=== PATIENT | female | born 1985 | race Caucasian/White ===

== ENCOUNTER 2016-06-14 07:54 | Emergency (ER) | payer MEDICAID ==
[2016-06-14 08:44] LABS: ABSOLUTE EOSINOPHILS # (AUTO) 0.1 10^3/uL (0.0-0.6); ABSOLUTE LYMPHOCYTES (AUTO) 1.3 10^3/uL (0.5-4.7); ABSOLUTE MONOCYTES (AUTO) 0.3 10^3/uL (0.1-1.4); ABSOLUTE NEUT (AUTO) 7.8 10^3/uL (1.7-8.2); BASOPHILS % (AUTO) 0.4 % (0-2); EOSINOPHILS % (AUTO) 0.9 % (0-6); HEMATOCRIT 27.2 % (36.0-47.0); HEMOGLOBIN 9.5 g/dL (12.0-15.5); HGB HCT DIFFERENCE 1.3; LYMPHOCYTES % (AUTO) 14.1 % (13-45); MEAN CORPUSCULAR HEMOGLOBIN 28.6 pg (27.0-33.4); MEAN CORPUSCULAR HGB CONC 34.7 g/dL (32.0-36.0); MEAN CORPUSCULAR VOLUME 82 fl (80-97); MONOCYTES % (AUTO) 3.2 % (3-13); RED BLOOD COUNT 3.31 10^6/uL (3.72-5.28); SEGMENTED NEUTROPHILS % (AUTO) 81.4 % (42-78); WHITE BLOOD COUNT 9.6 10^3/uL (4.0-10.5)
[2016-06-14 08:56] LABS: ALANINE AMINOTRANSFERASE 38 U/L (9-52); ALBUMIN 2.2 g/dL (3.5-5.0); ALKALINE PHOSPHATASE 62 U/L (38-126); ANION GAP 10 (5-19); ASPARTATE AMINO TRANSFERASE 16 U/L (14-36); BILIRUBIN,TOTAL 0.3 mg/dL (0.2-1.3); BLOOD UREA NITROGEN 79 mg/dL (7-20); CALCIUM 7.5 mg/dL (8.4-10.2); CARBON DIOXIDE 24 mmol/L (22-30); CHLORIDE 108 mmol/L (98-107); CREATININE RESULT 6.87 mg/dL (0.52-1.25); GLUCOSE 197 mg/dL (75-110); SODIUM 142.2 mmol/L (137-145); TOTAL PROTEIN 3.9 g/dL (6.3-8.2)
[2016-06-14] MEDS ORDERED: ONDANSETRON HCL INJ/PF 4 MG/2 ML SDV IV ONE (09:08)
[2016-06-14] MEDS ORDERED: FUROSEMIDE INJ/PF 20 MG/2 ML SDV IV ONE (09:09)
--- NOTE | 2016-06-14 09:13 | ER Document Report ---
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 She also states that she has worsening dyspnea. Of note she is in the process of getting started on peritoneal dialysis and completed the class II days ago. She is supposed to follow-up at some point this week with surgery. Her stopping builder is at [facility] in [place]. She denies any fevers or chills. She has had mild cough and congestion. No dysuria. TRAVEL OUTSIDE OF THE [place] IN LAST 30 DAYS: No - Related Data Allergies/Adverse Reactions: No Known Allergies Allergy (Verified 06/14/16 07:59) Past Medical History - General Information source: Patient - Social History Smoking Status: Never Smoker Chew tobacco use (# tins/day): No Frequency of alcohol use: None Drug Abuse: None Family History: Reviewed & Not Pertinent Patient has suicidal ideation: No Patient has homicidal ideation: No - Past Medical History Cardiac Medical History: Reports: Hx Hypertension Renal/ Medical History: Reports: Hx End Stage Renal Disease. Denies: Hx Peritoneal Dialysis GI Medical History: Reports: Hx Gastroesophageal Reflux Disease Past Surgical History: Reports: Hx Section Review of Systems - Review of Systems Notes: REVIEW OF SYSTEMS: CONSTITUTIONAL : Denies fever, chills, or sweats. EENT: Denies eye, ear, throat, or mouth pain or symptoms. Denies nasal or sinus congestion. CARDIOVASCULAR: As per history of present illness RESPIRATORY: As per history of present illness GASTROINTESTINAL: Denies abdominal pain. Vomiting 4 today as per history of present illness. No diarrhea. GENITOURINARY: Denies difficulty urinating, painful urination, burning, frequency, or blood in urine. FEMALE GENITOURINARY: Last menstrual period June 07 MUSCULOSKELETAL: Denies neck or back pain or joint pain or swelling. SKIN: Denies rash or skin lesions. HEMATOLOGIC : Denies easy bruising or bleeding. LYMPHATIC: Denies swollen, enlarged glands. NEUROLOGICAL: Denies altered mental status or loss of consciousness. Denies headache. PSYCHIATRIC: Denies anxiety or stress or depression. ALL OTHER SYSTEMS REVIEWED AND NEGATIVE. Physical Exam - Vital signs Vitals: Temp Pulse Resp BP Pulse Ox 98.2 F 99 19 157/88 H 96 06/14/16 08:01 06/14/16 08:01 06/14/16 08:01 06/14/16 08:01 06/14/16 08:01 Course - Re-evaluation Re-evalutation: 06/14/16 11:31 Patient has felt better in the emergency department since administration of Zofran. She has had no vomiting since then. She is noted to be smiling and pleasant and conversant and happy talking in the room with her family. Case was discussed with nephrology at [facility] who is familiar with the patient. We discussed her lab results today including the fact that her creatinine is 6.87. Reportedly this is an improvement from 2 weeks ago when her creatinine was above 8. At this time patient is feeling better and hemodynamically stable and so agrees with outpatient's symptomatic care and follow-up as scheduled. Return precautions discussed patient and family, told plan. - Vital Signs Vital signs: Temp Pulse Resp BP Pulse Ox 98.2 F 99 19 139/90 H 100 06/14/16 08:01 06/14/16 08:01 06/14/16 11:01 06/14/16 11:00 06/14/16 11:01 - Laboratory Result Diagrams: 06/14/16 08:25 06/14/16 08:25 Laboratory results interpreted by me: 06/14/16 06/14/16 08:25 08:25 RBC 3.31 L Hgb 9.5 L Hct 27.2 L Seg Neutrophils % 81.4 H Chloride 108 H BUN 79 H Creatinine 6.87 H Est GFR ( Amer) 9 L Est GFR (Non-Af Amer) 7 L Glucose 197 H Calcium 7.5 L Total Protein 3.9 L Albumin 2.2 L Discharge - Discharge Clinical Impression: ESRD (end stage renal disease) Vomiting Qualifiers: Vomiting type: unspecified Vomiting Intractability: non-intractable Nausea presence: with nausea Qualified Code(s): R11.2 - Nausea with vomiting, unspecified Condition: Stable Disposition: HOME, SELF-CARE Additional Instructions: You have end stage renal disease, but your creatinine today is actually improved to 6.87. Take zofran as needed for nausea/vomiting. Follow up with nephrology and surgery as scheduled and planned to continue with plan to initiate peritoneal dialysis. Please return to the ER for fever, worsening shortness of breath, persistent vomiting despite zofran, or any worsening symptoms or concerns. Prescriptions: Ondansetron [Zofran Odt 4 mg Tablet] 1 tab PO Q6H PRN #10 tab.rapdis PRN Reason: For Nausea/Vomiting Referrals: EMMIE GIPSON PA-C [Primary Care Provider] - Follow up in 3-5 days
[2016-06-14 11:47] VITALS: BP 139/90
--- NOTE | 2016-06-16 08:15 | EKG REPORT ---
SEVERITY:- NORMAL ECG - SINUS RHYTHM : Confirmed by: Torrey Graham MD 16-Jun-2016 08:15:00
== END 2016-06-14 11:48 | disposition home or self-care (01) ==
LOC: ER 07:54
DX: N18.6 End stage renal disease (principal); R11.2 Nausea with vomiting, unspecified; N26.9 Renal sclerosis, unspecified; R03.0 Elevated blood-pressure reading, without diagnosis of hypertension
CPT/HCPCS: 93005; 99284; 96374; 96375; 36415; 85025; 80053; 71020; 93010; J1940; J2405

== ENCOUNTER → 2016-06-24 | Outpatient (CLI) | payer MEDICAID ==
[2016-06-24 09:15] LABS: HEMATOCRIT 27.1 % (36.0-47.0); HEMOGLOBIN 9.5 g/dL (12.0-15.5); HGB HCT DIFFERENCE 1.4; MEAN CORPUSCULAR HEMOGLOBIN 28.8 pg (27.0-33.4); MEAN CORPUSCULAR HGB CONC 34.9 g/dL (32.0-36.0); MEAN CORPUSCULAR VOLUME 83 fl (80-97); RED BLOOD COUNT 3.28 10^6/uL (3.72-5.28); RED CELL DISTRIBUTION WIDTH 15.4 % (11.5-14.0); WHITE BLOOD COUNT 10.2 10^3/uL (4.0-10.5)
[2016-06-24 09:17] LABS: APPEARANCE,URINE CLEAR; BILIRUBIN,URINE NEGATIVE (NEGATIVE); GLUCOSE, URINE 150 mg/dL (NEGATIVE); KETONES,URINE NEGATIVE (NEGATIVE); LEUKOCYTE ESTERASE,URINE NEGATIVE (NEGATIVE); NITRITE,URINE NEGATIVE (NEGATIVE); PROTEIN,URINE >=500 mg/dL (NEGATIVE); UROBILINOGEN,URINE NEGATIVE mg/dL (<2.0)
[2016-06-24 09:43] LABS: ANION GAP 7 (5-19); BLOOD UREA NITROGEN 84 mg/dL (7-20); CALCIUM 7.9 mg/dL (8.4-10.2); CARBON DIOXIDE 26 mmol/L (22-30); CHLORIDE 106 mmol/L (98-107); CREATININE RESULT 6.98 mg/dL (0.52-1.25); GLUCOSE 84 mg/dL (75-110); POTASSIUM 4.8 mmol/L (3.6-5.0); SODIUM 138.6 mmol/L (137-145)
== END ==
LOC: OD 07:13
PROVIDERS: ATTEND Internal Medicine Nephrology
DX: I12.0 Hypertensive chronic kidney disease with stage 5 chronic kidney disease or end stage renal disease (principal); N18.5 Chronic kidney disease, stage 5; D64.9 Anemia, unspecified
CPT/HCPCS: 36415; 80048; 81001; 85027

== ENCOUNTER → 2016-06-26 | Outpatient (CLI) | payer MEDICAID | LOC: OD 10:16 | PROVIDERS: ATTEND Internal Medicine Nephrology | DX: R06.09 Other forms of dyspnea (principal) | CPT/HCPCS: 71020 ==

== ENCOUNTER → 2016-07-02 | Outpatient (CLI) | payer MEDICAID ==
[2016-07-02 09:34] LABS: APPEARANCE,URINE CLEAR; BILIRUBIN,URINE NEGATIVE (NEGATIVE); GLUCOSE, URINE 50 mg/dL (NEGATIVE); KETONES,URINE NEGATIVE (NEGATIVE); LEUKOCYTE ESTERASE,URINE NEGATIVE (NEGATIVE); NITRITE,URINE NEGATIVE (NEGATIVE); PROTEIN,URINE >=500 mg/dL (NEGATIVE); URINE SPECIFIC GRAVITY 1.008; UROBILINOGEN,URINE NEGATIVE mg/dL (<2.0)
[2016-07-02 09:40] LABS: ABSOLUTE LYMPHOCYTES (AUTO) 1.1 10^3/uL (0.5-4.7); ABSOLUTE MONOCYTES (AUTO) 0.3 10^3/uL (0.1-1.4); ABSOLUTE NEUT (AUTO) 5.9 10^3/uL (1.7-8.2); BASOPHILS % (AUTO) 0.3 % (0-2); EOSINOPHILS % (AUTO) 0.2 % (0-6); HEMATOCRIT 26.6 % (36.0-47.0); HEMOGLOBIN 9.2 g/dL (12.0-15.5); LYMPHOCYTES % (AUTO) 15.1 % (13-45); MEAN CORPUSCULAR HEMOGLOBIN 28.8 pg (27.0-33.4); MEAN CORPUSCULAR HGB CONC 34.6 g/dL (32.0-36.0); MEAN CORPUSCULAR VOLUME 83 fl (80-97); MONOCYTES % (AUTO) 3.6 % (3-13); RED CELL DISTRIBUTION WIDTH 15.7 % (11.5-14.0); SEGMENTED NEUTROPHILS % (AUTO) 80.8 % (42-78); WHITE BLOOD COUNT 7.3 10^3/uL (4.0-10.5)
[2016-07-02 10:01] LABS: ALANINE AMINOTRANSFERASE 33 U/L (9-52); ALBUMIN 2.2 g/dL (3.5-5.0); ALKALINE PHOSPHATASE 29 U/L (38-126); ANION GAP 6 (5-19); ASPARTATE AMINO TRANSFERASE 11 U/L (14-36); BILIRUBIN,DIRECT 0.1 mg/dL (0.0-0.4); BILIRUBIN,TOTAL 0.3 mg/dL (0.2-1.3); BLOOD UREA NITROGEN 96 mg/dL (7-20); CALCIUM 7.8 mg/dL (8.4-10.2); CARBON DIOXIDE 28 mmol/L (22-30); CHLORIDE 104 mmol/L (98-107); GLUCOSE 142 mg/dL (75-110); MAGNESIUM 1.8 mg/dL (1.6-2.3); PHOSPHORUS 5.6 mg/dL (2.5-4.5); SODIUM 137.9 mmol/L (137-145); TOTAL PROTEIN 4.2 g/dL (6.3-8.2)
[2016-07-02 10:34] LABS: ADD HIVPANEL? NO; HIV (1 AND 2) ANTIBODY NEGATIVE (NEGATIVE)
[2016-07-03 10:38] LABS: CREATININE URINE 53.5 mg/dL (Not Estab.)
== END ==
LOC: OD 07:51
PROVIDERS: ATTEND Internal Medicine Nephrology
DX: N18.5 Chronic kidney disease, stage 5 (principal); D64.9 Anemia, unspecified; R80.9 Proteinuria, unspecified; N04.9 Nephrotic syndrome with unspecified morphologic changes
CPT/HCPCS: 36415; 80053; 81001; 82570; 82728; 83540; 83550; 83735; 83970; 84100; 84156; 85025; 86701

== ENCOUNTER → 2016-07-09 | Outpatient (CLI) | payer MEDICAID ==
[2016-07-11 05:40] LABS: HEPATITIS C VIRUS AB <0.1 s/co ratio (0.0-0.9)
== END ==
LOC: OD 17:29
PROVIDERS: ATTEND Internal Medicine Nephrology
DX: I12.0 Hypertensive chronic kidney disease with stage 5 chronic kidney disease or end stage renal disease (principal); N18.5 Chronic kidney disease, stage 5; Z11.59 Encounter for screening for other viral diseases
CPT/HCPCS: 36415; 86317; 86704; 86803; 86804

== ENCOUNTER 2016-07-12 14:31 | Emergency (ER) | payer MEDICAID ==
--- NOTE | 2016-07-12 15:34 | ER Document Report ---
ED Medical Screen (RME) - General Chief Complaint: Shortness Of Breath Stated Complaint: SHORTNESS OF BREATH Notes: Today, patient is complaining of shortness of breath, nausea, weakness, and dizziness. 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 She was having symptoms for a couple of years until she finally had a diagnosis established in April , just 2 months ago. She has been told by her provider contracting consultant, Dr. Becerril, to be evaluated in the emergency department if she develops the symptoms that she is having today. She's been having these symptoms for the past couple of days. Has been nauseated but not vomiting. Some diarrhea. Urinary frequency, but she is on Lasix. Has had a slight cough. No fevers. TRAVEL OUTSIDE OF THE [place] IN LAST 30 DAYS: No - Related Data Allergies/Adverse Reactions: No Known Allergies Allergy (Verified 06/14/16 07:59) Past Medical History - Past Medical History Cardiac Medical History: Reports: Hx Hypertension Renal/ Medical History: Reports: Hx End Stage Renal Disease. Denies: Hx Peritoneal Dialysis - Will start soon GI Medical History: Reports: Hx Gastroesophageal Reflux Disease Past Surgical History: Reports: Hx Section - Immunizations Hx Diphtheria, Pertussis, Tetanus Vaccination: No Physical Exam - Vital signs Vitals: Temp Pulse Resp BP Pulse Ox 98.6 F 95 18 167/94 H 99 07/12/16 14:35 07/12/16 14:35 07/12/16 14:35 07/12/16 14:35 07/12/16 14:35 Course - Vital Signs Vital signs: Temp Pulse Resp BP Pulse Ox 98.6 F 95 18 167/94 H 99 07/12/16 14:35 07/12/16 14:35 07/12/16 14:35 07/12/16 14:35 07/12/16 14:35
--- NOTE | 2016-07-12 16:11 | ER Document Report ---
ED General - General Chief Complaint: Shortness Of Breath Stated Complaint: SHORTNESS OF BREATH Mode of Arrival: Ambulatory Information source: Patient Notes: Patient has a history of end-stage renal disease and is in the process of getting set up to have peritoneal dialysis initiated in the next few weeks. Patient complains of shortness of breath, nausea, diarrhea, and generalized weakness since yesterday that gradually worsened today. Patient was told by her vba developer if she has these type symptoms that she should come to the hospital for evaluation she may need to get dialysis started sooner. Her vba developer, Dr. Becerril, told her that he has already spoke with Dr. Law regarding the plan for peritoneal dialysis. TRAVEL OUTSIDE OF THE [place] IN LAST 30 DAYS: No - HPI Onset: Yesterday Onset/Duration: Worse Quality of pain: Achy Pain Level: 1 Associated symptoms: Nonproductive cough, Diarrhea, Nausea, Shortness of breath , Weakness. denies: Chest pain, Fever, Headache, Vomiting Exacerbated by: Denies Relieved by: Denies Similar symptoms previously: Yes Recently seen / treated by doctor: Yes - Related Data Allergies/Adverse Reactions: No Known Allergies Allergy (Verified 06/14/16 07:59) Past Medical History - General Information source: Patient Last Menstrual Period: 06/30/2016 - Social History Smoking Status: Never Smoker Frequency of alcohol use: None Drug Abuse: None Occupation: none Family History: Reviewed & Not Pertinent Patient has suicidal ideation: No Patient has homicidal ideation: No - Medical History Medical History: Other - FSGS - Past Medical History Cardiac Medical History: Reports: Hx Hypertension Endocrine Medical History: Reports: Other - 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 Denies: Hx Peritoneal Dialysis - Will start soon GI Medical History: Reports: Hx Gastroesophageal Reflux Disease Past Surgical History: Reports: Hx Section - Immunizations Hx Diphtheria, Pertussis, Tetanus Vaccination: No Review of Systems - Review of Systems Constitutional: No symptoms reported. denies: Fever, Recent illness EENT: No symptoms reported Cardiovascular: Dyspnea. denies: Chest pain, Lightheaded Respiratory: Cough - Mild cough, Short of breath Gastrointestinal: Diarrhea, Nausea. denies: Abdominal pain, Vomiting Genitourinary: Flank pain. denies: Dysuria Female Genitourinary: No symptoms reported Musculoskeletal: Back pain Skin: No symptoms reported Hematologic/Lymphatic: Anemia Neurological/Psychological: Weakness. denies: Headaches, Numbness Physical Exam - Vital signs Vitals: Temp Pulse Resp BP Pulse Ox 98.6 F 95 18 167/94 H 99 07/12/16 14:35 07/12/16 14:35 07/12/16 14:35 07/12/16 14:35 07/12/16 14:35 - General General appearance: Appears well, Alert In distress: None - HEENT Head: Normocephalic, Atraumatic Eyes: Normal Nasal: Normal Mouth/Lips: Normal Mucous membranes: Normal Neck: Normal, Supple - Respiratory Respiratory status: No respiratory distress Chest status: Nontender Breath sounds: Nonproductive cough. No: Rales Chest palpation: Normal - Cardiovascular Rhythm: Regular Heart sounds: S1 appreciated, S2 appreciated Murmur: No - Abdominal Inspection: Morbidly Obese Distension: No distension Bowel sounds: Normal Tenderness: Nontender - Back Back: Tender - Lumbar paraspinal tenderness, CVA tenderness - Bilateral - Extremities General upper extremity: Normal inspection, Normal strength General lower extremity: Edema - Neurological Neuro grossly intact: Yes Cognition: Normal Monalisa Coma Scale Eye Opening: Spontaneous Monalisa Coma Scale Verbal: Oriented [place] Coma Scale Motor: Obeys Commands Kennard Coma Scale Total: 15 - Psychological Associated symptoms: Normal affect, Normal mood - Skin Skin Temperature: Warm Skin Moisture: Dry Skin Color: Pale Course - Re-evaluation Re-evalutation: 07/12/16 17:[address] Peng who advises consultation with vba developer at [facility] 07/12/16 18:[address] Gonzalez at [facility] who was on- call for nephrology there. States that patient does not sound as though she needs emergent dialysis at this time and is likely stable to be admitted at this hospital, with the anticipated on-call nephrology coverage tomorrow. States that if patient is anticipating peritoneal dialysis, this is not a quick process and will need consultation with surgery first which can be done at this facility. Spoke with dairy machine operator farmworker at [facility] who did confirm that Dr. Clinton is corrections identification technician for nephrology tomorrow. Call placed in spoke with hospitalist Dr. Hodges who has concerns about patient 's suitability for admission given that we do not currently have nephrology services corrections identification technician, but is also concerned that pt may not warrant admission at this time. Discussed conversation with Dr Gonzalez. Dr Hodges states that he will pass pt's information to oncoming hospitalist Dr Lagos. 07/12/16 18:[address] Peng who agrees with plan to administer lasix to help with pt's symptoms and peripheral edema. 07/12/16 19:[address] Lagos regarding patient presentation, reviewed patient's diagnostic test results. Does not feel patient needs admission at this time. Discussed consultation with Dr. Peng who agrees that pt is stable for discharge tonight, and can f/u with surgeon tomorrow for consultation. 07/12/16 19:[address] Loera, who advises having patient follow up with on-call nephrology tomorrow as well as Dr. Law tomorrow. States that Dr. Law is the only surgeon with services here who performs peritoneal dialysis catheter insertion. Discussed plan of care with patient, patient advised of worsening signs or symptoms to return immediately for. Patient was hoping to be admitted and she states that she is having some insurance coverage issues and states that the surgeon would be able to perform the procedure as her insurance would get activated with her admission. Patient advised that she does not have an emergent condition tonight that warrants emergent dialysis, and that she is stable to follow-up with the surgeon as well as the vba developer tomorrow as an outpatient. Dr Peng agreeable with this plan of care. - Vital Signs Vital signs: Temp Pulse Resp BP Pulse Ox 97.7 F 82 16 166/99 H 100 07/12/16 18:28 07/12/16 18:28 07/12/16 18:28 07/12/16 18:28 07/12/16 18:28 - Laboratory Result Diagrams: 07/12/16 16:20 07/12/16 16:20 Laboratory results interpreted by me: 07/12/16 07/12/16 07/12/16 16:20 16:20 16:20 RBC 2.96 L Hgb 8.6 L Hct 24.8 L RDW 15.9 H Seg Neutrophils % 83.5 H Lymphocytes % 11.3 L Chloride 109 H BUN 80 H Creatinine 7.12 H Est GFR ( Amer) 8 L Est GFR (Non-Af Amer) 7 L Glucose 144 H Calcium 7.7 L AST 12 L Total Protein 4.3 L Albumin 2.2 L Lipase 399.9 H Urine Protein >=500 H Urine Glucose (UA) >=500 H Labs- Entire Visit 07/12/16 07/12/16 07/12/16 16:20 16:20 16:20 WBC 8.4 RBC 2.96 L Hgb 8.6 L Hct 24.8 L MCV 84 MCH 29.0 MCHC 34.6 RDW 15.9 H Plt Count 170 Seg Neutrophils % 83.5 H Lymphocytes % 11.3 L Monocytes % 4.1 Eosinophils % 0.5 Basophils % 0.6 Absolute Neutrophils 7.0 Absolute Lymphocytes 1.0 Absolute Monocytes 0.3 Absolute Eosinophils 0.0 Absolute Basophils 0.0 Sodium 141.1 Potassium 3.9 Chloride 109 H Carbon Dioxide 27 Anion Gap 5 BUN 80 H Creatinine 7.12 H Est GFR ( Amer) 8 L Est GFR (Non-Af Amer) 7 L Glucose 144 H Calcium 7.7 L Magnesium 1.8 Total Bilirubin 0.3 Direct Bilirubin 0.2 Indirect Bilirubin Not Reportable Neonat Total Bilirubin Not Reportable AST 12 L ALT 39 Alkaline Phosphatase 43 CK-MB (CK-2) Total Protein 4.3 L Albumin 2.2 L Lipase 399.9 H Serum HCG, Qual NEGATIVE Urine Color Urine Appearance Urine pH Ur Specific [place] Urine Protein Urine Glucose (UA) Urine Ketones Urine Blood Urine Nitrite Urine Bilirubin Urine Urobilinogen Ur Leukocyte Esterase Urine WBC (Auto) Urine RBC (Auto) Squamous Epi Cells Auto Urine Ascorbic Acid 07/12/16 07/12/16 16:20 16:20 WBC RBC Hgb Hct MCV MCH MCHC RDW Plt Count Seg Neutrophils % Lymphocytes % Monocytes % Eosinophils % Basophils % Absolute Neutrophils Absolute Lymphocytes Absolute Monocytes Absolute Eosinophils Absolute Basophils Sodium Potassium Chloride Carbon Dioxide Anion Gap BUN Creatinine Est GFR ( Amer) Est GFR (Non-Af Amer) Glucose Calcium Magnesium Total Bilirubin Direct Bilirubin Indirect Bilirubin Neonat Total Bilirubin AST ALT Alkaline Phosphatase CK-MB (CK-2) 0.85 Total Protein Albumin Lipase Serum HCG, Qual Urine Color STRAW Urine Appearance CLEAR Urine pH 5.0 Ur Specific [place] 1.008 Urine Protein >=500 H Urine Glucose (UA) >=500 H Urine Ketones NEGATIVE Urine Blood NEGATIVE Urine Nitrite NEGATIVE Urine Bilirubin NEGATIVE Urine Urobilinogen NEGATIVE Ur Leukocyte Esterase NEGATIVE Urine WBC (Auto) 5 Urine RBC (Auto) 1 Squamous Epi Cells Auto 1 Urine Ascorbic Acid NEGATIVE 07/12/16 20:01 Reviewed patient's previous laboratory tests performed over the past 2 months. - Diagnostic Test Radiology reviewed: Reports reviewed Discharge - Discharge Clinical Impression: Gall stones, End stage renal disease, Nausea, Weakness generalized Condition: Stable Disposition: HOME, SELF-CARE Instructions: Gallbladder Disease ([facility]), Low-Fat Diet ([facility]), Kidney Failure ( [facility]), Nausea or Vomiting, Nonspecific ([facility]) Additional Instructions: Return immediately for any new or worsening symptoms Followup with your primary care provider, call tomorrow to make a followup appointment Follow up with Dr. Clinton, vba developer who is corrections identification technician tomorrow, for further evaluation Follow-up with Dr. Chun Law, call his office tomorrow The surgeon on-call today will speak with Dr. Law tomorrow morning regarding your visit today If you have any new or worsening symptoms, return to emergency department for further evaluation Follow-up with Dr. Becerril for further management, call for an appointment Referrals: EMMIE GIPSON PA-C [Primary Care Provider] - Follow up as needed LEONARDO CLINTON MD [ACTIVE STAFF] - Follow up tomorrow CHUN LAW MD [ACTIVE STAFF] - Follow up tomorrow Jessica BECERRIL MD [ACTIVE STAFF] - Follow up tomorrow
[2016-07-12 16:28] LABS: ABSOLUTE MONOCYTES (AUTO) 0.3 10^3/uL (0.1-1.4); BASOPHILS % (AUTO) 0.6 % (0-2); EOSINOPHILS % (AUTO) 0.5 % (0-6); HEMATOCRIT 24.8 % (36.0-47.0); HEMOGLOBIN 8.6 g/dL (12.0-15.5); LYMPHOCYTES % (AUTO) 11.3 % (13-45); MEAN CORPUSCULAR HGB CONC 34.6 g/dL (32.0-36.0); MEAN CORPUSCULAR VOLUME 84 fl (80-97); MONOCYTES % (AUTO) 4.1 % (3-13); RED BLOOD COUNT 2.96 10^6/uL (3.72-5.28); RED CELL DISTRIBUTION WIDTH 15.9 % (11.5-14.0); SEGMENTED NEUTROPHILS % (AUTO) 83.5 % (42-78); WHITE BLOOD COUNT 8.4 10^3/uL (4.0-10.5)
[2016-07-12 16:36] LABS: APPEARANCE,URINE CLEAR; BILIRUBIN,URINE NEGATIVE (NEGATIVE); GLUCOSE, URINE >=500 mg/dL (NEGATIVE); KETONES,URINE NEGATIVE (NEGATIVE); LEUKOCYTE ESTERASE,URINE NEGATIVE (NEGATIVE); NITRITE,URINE NEGATIVE (NEGATIVE); PROTEIN,URINE >=500 mg/dL (NEGATIVE); URINE SPECIFIC GRAVITY 1.008; UROBILINOGEN,URINE NEGATIVE mg/dL (<2.0)
[2016-07-12 16:45] LABS: ALANINE AMINOTRANSFERASE 39 U/L (9-52); ALBUMIN 2.2 g/dL (3.5-5.0); ALKALINE PHOSPHATASE 43 U/L (38-126); ANION GAP 5 (5-19); ASPARTATE AMINO TRANSFERASE 12 U/L (14-36); BILIRUBIN,DIRECT 0.2 mg/dL (0.0-0.4); BILIRUBIN,TOTAL 0.3 mg/dL (0.2-1.3); BLOOD UREA NITROGEN 80 mg/dL (7-20); CALCIUM 7.7 mg/dL (8.4-10.2); CARBON DIOXIDE 27 mmol/L (22-30); CHLORIDE 109 mmol/L (98-107); CREATININE RESULT 7.12 mg/dL (0.52-1.25); GLUCOSE 144 mg/dL (75-110); LIPASE 399.9 U/L (23-300); MAGNESIUM 1.8 mg/dL (1.6-2.3); POTASSIUM 3.9 mmol/L (3.6-5.0); SODIUM 141.1 mmol/L (137-145); TOTAL PROTEIN 4.3 g/dL (6.3-8.2)
--- NOTE | 2016-07-12 17:54 | EKG REPORT ---
SEVERITY:- NORMAL ECG - SINUS RHYTHM : Confirmed by: Torrey Graham MD 12-Jul-2016 17:53:46
[2016-07-12] MEDS ORDERED: FUROSEMIDE INJ/PF 40 MG/4 ML SDV IV ONE (18:41)
[2016-07-12] MEDS ORDERED: ONDANSETRON HCL INJ/PF 4 MG/2 ML SDV IV ONE (19:02)
[2016-07-12 20:18] VITALS: BP 150/80
== END 2016-07-12 20:25 | disposition home or self-care (01) ==
LOC: ER 14:31
DX: I12.0 Hypertensive chronic kidney disease with stage 5 chronic kidney disease or end stage renal disease (principal); N18.6 End stage renal disease; K80.20 Calculus of gallbladder without cholecystitis without obstruction; D64.9 Anemia, unspecified; R60.0 Localized edema; R53.1 Weakness; R11.0 Nausea; R06.02 Shortness of breath; R19.7 Diarrhea, unspecified; R05 Cough; R10.9 Unspecified abdominal pain; M54.9 Dorsalgia, unspecified
CPT/HCPCS: 93005; 99285; 96374; 36415; 82553; 83690; 83735; 84703; 85025; 80053; 81001; 71020; 76705; 93010; J1940; J2405

== ENCOUNTER 2016-07-13 08:49 | Inpatient (IN) | payer MEDICAID ==
--- NOTE | 2016-07-13 09:20 | ER Document Report ---
ED GI/ - General Chief Complaint: General Weakness Stated Complaint: SHORTNESS OF BREATH Time seen by provider: 09:20 Mode of Arrival: Ambulatory Information source: Patient Notes: 31-year-old female presents to ED for nausea vomiting weakness and shortness of breath. She has planned to start on peritoneal dialysis and needs to come in and get the peritoneal dialysis catheter placed. Spoke with Dr. Melendrez she said that she will come in and examine her about noon please have a chemistry EC and urine when she gets here so the she can examine the patient's the patient belongs to [facility]. Dr Melendrez also said that the patient will need to be admitted to the hospitalist. TRAVEL OUTSIDE OF THE [place] IN LAST 30 DAYS: No - HPI Patient complains to provider of: Vomiting, Other - Short of breath patient is end-stage renal failure according to Dr. Melendrez she has uremia Onset: Other Timing/Duration: Gradual Quality of pain: No pain Pain Level: Denies Vaginal bleeding (Compared to normal period): None Associated symptoms: Nausea, Shortness of breath, Vomiting, Other - Weakness and End-stage renal failure Exacerbated by: Denies Relieved by: Denies Similar symptoms previously: Yes Recently seen / treated by doctor: Yes - Related Data Allergies/Adverse Reactions: No Known Allergies Allergy (Verified 07/13/16 09:13) Past Medical History - General Information source: Patient - Social History Smoking Status: Never Smoker Cigarette use (# per day): No Chew tobacco use (# tins/day): No Smoking Education Provided: No Frequency of alcohol use: None Drug Abuse: None Lives with: Family Family History: Reviewed & Not Pertinent Patient has suicidal ideation: No Patient has homicidal ideation: No - Past Medical History Cardiac Medical History: Reports: Hx Hypertension Pulmonary Medical History: Reports: None EENT Medical History: Reports: None Neurological Medical History: Reports: None Endocrine Medical History: Reports: None Renal/ Medical History: Reports: Hx End Stage Renal Disease Malignancy Medical History: Reports: None GI Medical History: Reports: Hx Gastroesophageal Reflux Disease Musculoskeltal Medical History: Reports None Skin Medical History: Reports None Psychiatric Medical History: Reports: None Traumatic Medical History: Reports: None Infectious Medical History: Reports: None Past Surgical History: Reports: Hx Section - Immunizations Hx Diphtheria, Pertussis, Tetanus Vaccination: No Review of Systems - Review of Systems Constitutional: No symptoms reported EENT: No symptoms reported Cardiovascular: No symptoms reported Respiratory: Short of breath Gastrointestinal: Nausea, Vomiting Genitourinary: Other - End-stage renal failure and uremia Female Genitourinary: No symptoms reported Musculoskeletal: No symptoms reported Skin: No symptoms reported Hematologic/Lymphatic: No symptoms reported Neurological/Psychological: No symptoms reported -: Yes All other systems reviewed and negative Physical Exam - Vital signs Vitals: Temp Pulse Resp BP Pulse Ox 97.9 F 91 16 154/94 H 99 07/13/16 08:52 07/13/16 08:52 07/13/16 08:52 07/13/16 08:52 07/13/16 08:52 Interpretation: Normal - General General appearance: Appears well, Alert - HEENT Head: Normocephalic, Atraumatic Eyes: Normal Pupils: PERRL - Respiratory Respiratory status: No respiratory distress Chest status: Nontender Breath sounds: Normal Chest palpation: Normal - Cardiovascular Rhythm: Regular Heart sounds: Normal auscultation Murmur: No - Abdominal Inspection: Normal Distension: No distension Bowel sounds: Normal Tenderness: Nontender Organomegaly: No organomegaly - Back Back: Normal, Nontender - Extremities General upper extremity: Normal inspection, Nontender, Normal color, Normal ROM , Normal temperature General lower extremity: Normal inspection, Nontender, Normal color, Normal ROM , Normal temperature, Normal weight bearing. No: Misbah's sign - Neurological Neuro grossly intact: Yes Cognition: Normal Orientation: AAOx4 [place] Coma Scale Eye Opening: Spontaneous [place] Coma Scale Verbal: Oriented Monalisa Coma Scale Motor: Obeys Commands Monalisa Coma Scale Total: 15 Speech: Normal Motor strength normal: LUE, RUE, LLE, RLE Sensory: Normal - Psychological Associated symptoms: Normal affect, Normal mood - Skin Skin Temperature: Warm Skin Moisture: Dry Skin Color: Normal Course - Re-evaluation Re-evalutation: 07/13/16 12:[address] Clay as she is covering for Dr. Becerril in this patient is coming in for peritoneal dialysis for the first time after having a peritoneal dialysis catheter inserted. She stated the patient will need to be admitted to the hospitalist. Consulted Dr. North who stated that it was Dr. Hodges's comp clinic patient. Consulted Dr. Hodges who stated and patient will be admitted to floor bed. Dr. Clay stated she would be down around noon to examine the patient. - Vital Signs Vital signs: Temp Pulse Resp BP Pulse Ox 97.9 F 91 16 154/94 H 99 07/13/16 08:52 07/13/16 08:52 07/13/16 09:03 07/13/16 08:52 07/13/16 08:52 - Laboratory Result Diagrams: 07/13/16 09:46 07/13/16 09:46 Laboratory results interpreted by me: 07/13/16 07/13/16 07/13/16 09:46 09:46 09:46 RBC 3.17 L Hgb 9.3 L Hct 26.7 L RDW 16.3 H Seg Neutrophils % 92.5 H Lymphocytes % 5.1 L Monocytes % 1.9 L Absolute Neutrophils 9.6 H Chloride 110 H BUN 82 H Creatinine 6.86 H Est GFR ( Amer) 9 L Est GFR (Non-Af Amer) 7 L Glucose 132 H Calcium 7.9 L Alkaline Phosphatase 31 L Total Protein 4.6 L Albumin 2.4 L Lipase 315.0 H Urine Protein Urine Glucose (UA) 07/13/16 10:18 RBC Hgb Hct RDW Seg Neutrophils % Lymphocytes % Monocytes % Absolute Neutrophils Chloride BUN Creatinine Est GFR ( Amer) Est GFR (Non-Af Amer) Glucose Calcium Alkaline Phosphatase Total Protein Albumin Lipase Urine Protein >=500 H Urine Glucose (UA) 150 H Discharge - Discharge Clinical Impression: End stage renal disease, Nausea Admitting Provider: Hospitalist - [facility] Admitted: Medical Floor
[2016-07-13 09:57] LABS: ABSOLUTE LYMPHOCYTES (AUTO) 0.5 10^3/uL (0.5-4.7); ABSOLUTE MONOCYTES (AUTO) 0.2 10^3/uL (0.1-1.4); ABSOLUTE NEUT (AUTO) 9.6 10^3/uL (1.7-8.2); BASOPHILS % (AUTO) 0.5 % (0-2); HEMATOCRIT 26.7 % (36.0-47.0); HEMOGLOBIN 9.3 g/dL (12.0-15.5); HGB HCT DIFFERENCE 1.2; LYMPHOCYTES % (AUTO) 5.1 % (13-45); MEAN CORPUSCULAR HEMOGLOBIN 29.5 pg (27.0-33.4); MEAN CORPUSCULAR VOLUME 84 fl (80-97); MONOCYTES % (AUTO) 1.9 % (3-13); RED BLOOD COUNT 3.17 10^6/uL (3.72-5.28); RED CELL DISTRIBUTION WIDTH 16.3 % (11.5-14.0); SEGMENTED NEUTROPHILS % (AUTO) 92.5 % (42-78); WHITE BLOOD COUNT 10.4 10^3/uL (4.0-10.5)
[2016-07-13 10:17] LABS: ALANINE AMINOTRANSFERASE 37 U/L (9-52); ALBUMIN 2.4 g/dL (3.5-5.0); ALKALINE PHOSPHATASE 31 U/L (38-126); ANION GAP 7 (5-19); ASPARTATE AMINO TRANSFERASE 14 U/L (14-36); BILIRUBIN,DIRECT 0.3 mg/dL (0.0-0.4); BILIRUBIN,TOTAL 0.5 mg/dL (0.2-1.3); BLOOD UREA NITROGEN 82 mg/dL (7-20); CALCIUM 7.9 mg/dL (8.4-10.2); CARBON DIOXIDE 23 mmol/L (22-30); CHLORIDE 110 mmol/L (98-107); CREATININE RESULT 6.86 mg/dL (0.52-1.25); GLUCOSE 132 mg/dL (75-110); SODIUM 140.2 mmol/L (137-145); TOTAL PROTEIN 4.6 g/dL (6.3-8.2)
[2016-07-13 11:04] LABS: APPEARANCE,URINE CLEAR; BILIRUBIN,URINE NEGATIVE (NEGATIVE); GLUCOSE, URINE 150 mg/dL (NEGATIVE); KETONES,URINE NEGATIVE (NEGATIVE); LEUKOCYTE ESTERASE,URINE NEGATIVE (NEGATIVE); NITRITE,URINE NEGATIVE (NEGATIVE); PROTEIN,URINE >=500 mg/dL (NEGATIVE); URINE SPECIFIC GRAVITY 1.009; UROBILINOGEN,URINE NEGATIVE mg/dL (<2.0)
[2016-07-13] MEDS ORDERED: ACETAMINOPHEN 325 MG TABLET PO PRN (11:04)
[2016-07-13] MEDS ORDERED: GLUCAGON,HUMAN RECOMB 1 MG INJ IM PRN (12:48)
[2016-07-13] MEDS ORDERED: INSULIN LISPRO 100 UNIT/ML 3 ML VIAL SUBCUT PRN (12:48)
[2016-07-13] MEDS ORDERED: DEXTROSE 40% GEL 15 GM TUBE PO PRN ×2 (12:48)
[2016-07-13] MEDS ORDERED: DEXTROSE 50%-WATER 25 GM/50 ML DISP.SYRIN IV PRN ×2 (12:48)
--- NOTE | 2016-07-13 12:48 | PDOC H&P ---
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 The patient has had worsening of her BUN/creatinine is have complaints of nausea. She was told to come to the emergency room if the nausea became worse because it was most likely related to her uremia. Patient however was in remission yesterday and was found to have gallstones as well as pancreatitis. Sounded does show gallstones but no of his biliary dilatation. Patient does relate that if she eats fatty foods or meat she becomes nauseous and does develop epigastric pain that radiates through to her right shoulder blade. Patient denies any alcohol use. The patient reports that she is to get a peritoneal dialysis catheter placed in anticipation that she will start peritoneal dialysis. Patient denies having any fevers or chills but has had nausea and abdominal pain. She denies any vomiting however. She reports that when she gets the abdominal discomfort it's about 5 out of 10. The patient also has had some complaints of shortness of breath but denies any orthopnea or PND. She's not had any problems acidosis or obvious volume overload yet. Her potassium also has remained normal. 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 Renal/ Medical History: Reports: End Stage Renal Disease Malignancy Medical History: Reports: None GI Medical History: Reports: Gastroesophageal Reflux Disease Musculoskeltal Medical History: Reports: None Skin Medical History: Reports: None Psychiatric Medical History: Reports: None Traumatic Medical History: Reports: None Infectious Medical History: Reports: None Past Surgical History Past Surgical History: Reports: Section Social History Information Source: Patient Lives with: Family, Spouse/Significant other Smoking Status: Never Smoker Frequency of Alcohol Use: None Hx Recreational Drug Use: No Drugs: None Hx Prescription Drug Abuse: No - Advance Directive Resuscitation Status: Full Code Surrogate healthcare decision maker:: Her Family History Family History: Mother in her 40s from motor vehicle accident. Father is 54 alive and is healthy. Parental Family History Reviewed: Yes Children Family History Reviewed: No Sibling(s) Family History Reviewed.: No Medication/Allergy Home Medications: Ondansetron [Zofran Odt 4 mg Tablet] 1 tab PO Q6H PRN #10 tab.rapdis 06/14/16 Ondansetron HCl [Zofran 4 mg Tablet] 1 - 2 tab PO Q6 PRN #15 tablet 07/12/16 Allergies/Adverse Reactions: No Known Allergies Allergy (Verified 07/13/16 09:13) Review of Systems Constitutional: PRESENT: weight gain. ABSENT: chills, fever(s), headache(s) Eyes: ABSENT: visual disturbances Ears: ABSENT: hearing changes Cardiovascular: PRESENT: dyspnea on exertion. ABSENT: chest pain, edema, orthropnea, palpitations Respiratory: PRESENT: dyspnea Gastrointestinal: PRESENT: as per HPI Genitourinary: ABSENT: dysuria, hematuria Integumentary: ABSENT: rash, wounds Neurological: ABSENT: abnormal gait, abnormal speech, confusion, dizziness, focal weakness, syncope Psychiatric: ABSENT: anxiety, depression Endocrine: ABSENT: cold intolerance, heat intolerance, polydipsia, polyuria Physical Exam Vital Signs: Temp Pulse Resp BP Pulse Ox 97.9 F 91 16 154/94 H 99 07/13/16 08:52 07/13/16 08:52 07/13/16 09:03 07/13/16 08:52 07/13/16 08:52 Intake & Output 07/12/16 07/13/16 07/14/16 06:59 06:59 06:59 Weight 118.6 kg General appearance: PRESENT: no acute distress, well-developed, well-nourished Head exam: PRESENT: atraumatic, normocephalic Eye exam: PRESENT: conjunctiva pink, EOMI, PERRLA. ABSENT: scleral icterus Ear exam: PRESENT: normal external ear exam Mouth exam: PRESENT: moist, tongue midline Neck exam: ABSENT: JVD Respiratory exam: PRESENT: clear to auscultation eneida. ABSENT: rales, rhonchi, wheezes Cardiovascular exam: PRESENT: RRR. ABSENT: diastolic murmur, rubs, systolic murmur Pulses: PRESENT: normal dorsalis pedis pul Vascular exam: PRESENT: normal capillary refill GI/Abdominal exam: PRESENT: normal bowel sounds, soft. ABSENT: distended, guarding, mass, organolmegaly, rebound, tenderness Extremities exam: ABSENT: calf tenderness, clubbing, pedal edema Neurological exam: PRESENT: alert, awake, oriented to person, oriented to place , oriented to time, oriented to situation, CN II-XII grossly intact. ABSENT: motor sensory deficit Psychiatric exam: PRESENT: appropriate affect Skin exam: PRESENT: dry, intact, warm. ABSENT: cyanosis, rash Results Laboratory Results: 07/13/16 09:46 07/13/16 09:46 07/13/16 07/13/16 07/13/16 09:46 09:46 09:46 WBC 10.4 RBC 3.17 L Hgb 9.3 L Hct 26.7 L MCV 84 MCH 29.5 MCHC 35.0 RDW 16.3 H Plt Count 185 Seg Neutrophils % 92.5 H Lymphocytes % 5.1 L Monocytes % 1.9 L Eosinophils % 0.0 Basophils % 0.5 Absolute Neutrophils 9.6 H Absolute Lymphocytes 0.5 Absolute Monocytes 0.2 Absolute Eosinophils 0.0 Absolute Basophils 0.0 Sodium 140.2 Potassium 5.0 D Chloride 110 H Carbon Dioxide 23 Anion Gap 7 BUN 82 H Creatinine 6.86 H Est GFR ( Amer) 9 L Est GFR (Non-Af Amer) 7 L Glucose 132 H Calcium 7.9 L Total Bilirubin 0.5 AST 14 ALT 37 Alkaline Phosphatase 31 L Total Protein 4.6 L Albumin 2.4 L Lipase Serum HCG, Qual NEGATIVE Urine Color Urine Appearance Urine pH Ur Specific [place] Urine Protein Urine Glucose (UA) Urine Ketones Urine Blood Urine Nitrite Ur Leukocyte Esterase Urine WBC (Auto) Urine RBC (Auto) 07/13/16 07/13/16 09:46 10:18 WBC RBC Hgb Hct MCV MCH MCHC RDW Plt Count Seg Neutrophils % Lymphocytes % Monocytes % Eosinophils % Basophils % Absolute Neutrophils Absolute Lymphocytes Absolute Monocytes Absolute Eosinophils Absolute Basophils Sodium Potassium Chloride Carbon Dioxide Anion Gap BUN Creatinine Est GFR ( Amer) Est GFR (Non-Af Amer) Glucose Calcium Total Bilirubin AST ALT Alkaline Phosphatase Total Protein Albumin Lipase 315.0 H Serum HCG, Qual Urine Color STRAW Urine Appearance CLEAR Urine pH 5.0 Ur Specific [place] 1.009 Urine Protein >=500 H Urine Glucose (UA) 150 H Urine Ketones NEGATIVE Urine Blood NEGATIVE Urine Nitrite NEGATIVE Ur Leukocyte Esterase NEGATIVE Urine WBC (Auto) 4 Urine RBC (Auto) 1 Assessment & Plan - Diagnosis (1) End stage renal disease Is this a current diagnosis for this admission?: YesPlan: Patient has had worsening of her BUN/creatinine. She does not have hyperkalemia or acidosis yet. She does complain of some shortness of breath but does not have any orthopnea or PND. She appears to be euvolemic on exam. The plan is for this patient to have a peritoneal dialysis catheter placed. Patient will be evaluated by nephrology. The patient has focal segmental minimal sclerosis as the cause for her end-stage renal disease for which she has been taking prednisone. We will continue with the steroids. (2) Gall stones Is this a current diagnosis for this admission?: YesPlan: Patient has had nausea which was presumed to be from her uremia however given the fact that she has gallstones and some low-level pancreatitis and concern that this may be all related to her gallstones. Will ask GI for their opinion and also ask general surgery to evaluate the patient to see whether or not she needs to have a cholecystectomy done prior to having her peritoneal catheter placed. (3) Diabetes mellitus Is this a current diagnosis for this admission?: YesPlan: Patient has steroid-induced diabetes. She continues with prednisone 60 mg a day and Lantus 10 units daily. We'll also cover with sliding scale insulin. (4) Hypertension Is this a current diagnosis for this admission?: YesPlan: Patient has been on Coreg, hydralazine, Lasix and we will continue those. - Time Time Spent: 50 to 70 Minutes - Inpatient Certification Medical Necessity: Need Close Monitoring Due to Risk of Patient Decompensation
[2016-07-13] MEDS ORDERED: 1/2 NORMAL SALINE 1,000 ML IV PRN (15:18)
--- NOTE | 2016-07-13 19:01 | PDOC CONSULTATION ---
Consultation Consult Date: 07/13/16 History of Present Illness Admission Date/PCP: 07/13/16 11:04 Jessica GARCIA MD History of Present Illness: This is a 31-year-old patient was admitted with recurrent epigastric pain and nausea. She has gallstones and the consultation was requested for possible ERCP. She has no dilated ducts and her LFTs are normal. She also has a creatinine of over six and has been diagnosed with uremia. She has been doing better since being admitted and has not had any vomiting. She is scheduled for cholecystectomy tomorrow. Her lipase was only slightly elevated at 350. 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 Renal/ Medical History: Reports: End Stage Renal Disease Malignancy Medical History: Reports: None GI Medical History: Reports: Gastroesophageal Reflux Disease Musculoskeltal Medical History: Reports: None Skin Medical History: Reports: None Psychiatric Medical History: Reports: None Traumatic Medical History: Reports: None Infectious Medical History: Reports: None Past Surgical History Past Surgical History: Reports: Section Social History Lives with: Family, Spouse/Significant other Smoking Status: Former Smoker Last Time Smoked: 2011 Frequency of Alcohol Use: None Hx Recreational Drug Use: No Drugs: None Hx Prescription Drug Abuse: No - Advance Directive Resuscitation Status: Full Code Family History Family History: Reviewed & Not Pertinent Parental Family History Reviewed: No Children Family History Reviewed: NA Sibling(s) Family History Reviewed.: NA Medication/Allergy Home Medications: Calcium Carbonate [Tums Chewable 500 mg Tab.chew] 1,000 mg PO MEALS 07/13/16 Carvedilol [Coreg 12.5 mg Tablet] 12.5 mg PO Q12 07/13/16 Furosemide [Lasix] 40 mg PO BID 07/13/16 Hydralazine HCl [Apresoline 25 mg Tablet] 25 mg PO BID 07/13/16 Hydroxyzine HCl [Atarax 10 mg Tablet] 10 mg PO PRN PRN 07/13/16 Insulin Glargine,Hum.rec.anlog [Lantus Solostar] 10 unit SUBCUT DAILY 07/13/16 Omeprazole 40 mg PO DAILY 07/13/16 Ondansetron HCl [Zofran 4 mg Tablet] 4 mg PO Q6HP PRN 07/13/16 Prednisone [Deltasone 20 mg Tablet] 40 mg PO QAM 07/13/16 Allergies/Adverse Reactions: No Known Allergies Allergy (Verified 07/13/16 09:13) Review of Systems All systems: reviewed and no additional remarkable complaints except as stated Physical Exam Vital Signs: Temp Pulse Resp BP Pulse Ox 97.9 F 59 L 18 148/80 H 100 07/13/16 16:04 07/13/16 16:04 07/13/16 16:04 07/13/16 16:04 07/13/16 16:04 Exam: General: Patient is alert and looks well. HEENT: There is no pallor or jaundice. PERRLA. Oropharynx normal Respiratory: No chest deformity. No respiratory distress. Chest wall palpitation was unremarkable. Breath sounds were normal Cardiovascular: Heart sounds 1 and 2 normal with no murmurs. Abdominal: Not distended. Soft and nontender. Liver and spleen not palpable. No ascites demonstrated. Bowel sounds active. Rectal examination was deferred. Extremities: No edema Neurological: Alert and oriented x4. Grossly nonfocal. Normal speech Skin: No significant rash Psychological: Normal affect Assessment & Plan - Diagnosis (1) Nausea Plan: Her recurrent nausea and pain may be related to her gallstones or her renal failure. She does not have clinically significant pancreatitis and her biliary tree appear normal on ultrasound. There is no indication for an ERCP at this time. We can proceed with cholecystectomy (2) End stage renal disease Is this a current diagnosis for this admission?: Yes (3) Gall stones Is this a current diagnosis for this admission?: Yes
[2016-07-13] MEDS ORDERED: (PENDING PHARMACY ID) (Ondansetron Hcl [Zofran 4 Mg Tablet] 4 MG) PO PRN (20:22)
[2016-07-13] MEDS ORDERED: HYDROXYZINE HCL 10 MG TABLET PO PRN (20:29)
--- NOTE | 2016-07-13 20:57 | PDOC CONSULTATION ---
Consultation Consult Date: 07/13/16 Attending physician:: WHITLEY HODGES Consult reason:: I was asked by Dr. Hodges to see the patient due to uremia in a patient with chronic kidney disease stage V. 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 Patient follows up with Dr. Kei Becerril who I am covering for this week. Patient got hospitalized at [facility] last April 2016 where she presented with acute renal failure and later on diagnosis with the above. Patient also has nephrotic range proteinuria with more recent urine protein to creatinine ratio of 6.4 gm. She was treated with pulse steroids and continued on oral prednisone. She subsequently followed up with Dr. Becerril here in [place]. Patient said she started to experience more nausea especially in the morning and tried not to vomit. She was feeling weak and feels tired all the time. She is short of breath all the time although not worsening. She claims she does have good appetite though and is able to eat whenever she can. She denies any chest pain. She was also being treated with Lasix and has lost 25 pounds since then. She saw Dr. Becerril in his office last and due to the above symptoms he arrange patient to have peritoneal dialysis placement by Dr. Rey Carnes supposedly today for acute peritoneal dialysis start. Patient went to the emergency room last night due to the above symptoms with the expectation that she will be admitted so to Dr. Carnes can do her peritoneal dialysis today. Dr. Carnes was aware of the plan from last week. She was worked up last night and was found to have cholelithiasis although as well as elevated lipase for possible mild acute pancreatitis. She was however discharged home. This morning she called Dr. Becerril office and related what happened. Dr. Becerril racing secretary called me and immediately advised the patient to go to the emergency room which she did. Due to the findings of cholelithiasis and mild elevated lipase, Dr. Hodges is consulted Gen. surgery and gastroenterology. 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 Renal/ Medical History: Reports: End Stage Renal Disease, Hypocalcemia, Metabolic Acidosis, Renal Osteodystropy, Other - FSGS-focal segmental glomerulosclerosis confirmed by kidney biopsy in April 2016 GI Medical History: Reports: Gastroesophageal Reflux Disease Hematology Medical History: Reports Anemia of Chronic Kidney Disease, Reports Iron Deficiency Anemia Past Surgical History Past Surgical History: Reports: Section, Other - Kidney biopsy on April 2016 Social History Lives with: Family, Spouse/Significant other Smoking Status: Former Smoker Last Time Smoked: 2011 Frequency of Alcohol Use: None Hx Recreational Drug Use: No Drugs: None Hx Prescription Drug Abuse: No - Advance Directive Resuscitation Status: Full Code Family History Family History: None Parental Family History Reviewed: Yes Children Family History Reviewed: NA Sibling(s) Family History Reviewed.: Unknown Medication/Allergy Home Medications: Calcium Carbonate [Tums Chewable 500 mg Tab.chew] 1,000 mg PO MEALS 07/13/16 Carvedilol [Coreg 12.5 mg Tablet] 12.5 mg PO Q12 07/13/16 Furosemide [Lasix] 40 mg PO BID 07/13/16 Hydralazine HCl [Apresoline 25 mg Tablet] 25 mg PO BID 07/13/16 Hydroxyzine HCl [Atarax 10 mg Tablet] 10 mg PO PRN PRN 07/13/16 Insulin Glargine,Hum.rec.anlog [Lantus Solostar] 10 unit SUBCUT DAILY 07/13/16 Omeprazole 40 mg PO DAILY 07/13/16 Ondansetron HCl [Zofran 4 mg Tablet] 4 mg PO Q6HP PRN 07/13/16 Prednisone [Deltasone 20 mg Tablet] 40 mg PO QAM 07/13/16 Allergies/Adverse Reactions: No Known Allergies Allergy (Verified 07/13/16 09:13) Review of Systems All systems: reviewed and no additional remarkable complaints except as stated Review of Systems: Constitutional: ABSENT: chills, fever(s), headache(s), weight gain, admits fatigue and feeling weak, admits weight loss due to diuresis Eyes: ABSENT: visual disturbances Ears: ABSENT: hearing changes Cardiovascular: ABSENT: chest pain, dyspnea on exertion, orthropnea, palpitations; admits edema Respiratory: ABSENT: cough, hemoptysis; admit shortness of breath Gastrointestinal: ABSENT: abdominal pain, constipation, diarrhea, hematemesis, hematochezia, vomiting; admits nausea Genitourinary: ABSENT: dysuria, hematuria Musculoskeletal: ABSENT: joint swelling Integumentary: ABSENT: rash, wounds Neurological: ABSENT: abnormal gait, abnormal speech, confusion, dizziness, focal weakness, numbness, syncope Psychiatric: ABSENT: anxiety, depression Endocrine: ABSENT: cold intolerance, heat intolerance, polydipsia, polyuria Hematologic/Lymphatic: ABSENT: easy bleeding, easy bruising, lymphadenopathy Physical Exam Vital Signs: Temp Pulse Resp BP Pulse Ox 97.9 F 59 L 18 148/80 H 100 07/13/16 16:04 07/13/16 16:04 07/13/16 16:04 07/13/16 16:04 07/13/16 16:04 Exam: General appearance: no acute distress, cooperative, well-developed, well- nourished Head exam: PRESENT: atraumatic, normocephalic Eye exam: PRESENT: Conjunctiva slightly pale, EOMI, PERRLA. ABSENT: conjunctival injection, scleral icterus Mouth exam: PRESENT: moist, neck supple, tongue midline Neck exam: PRESENT: full ROM. ABSENT: carotid bruit, JVD, lymphadenopathy, thyromegaly Respiratory exam: PRESENT: clear to auscultation bilaterally. ABSENT: rales, rhonchi, stridor, wheezes Cardiovascular exam: PRESENT: RRR, +S1, +S2. ABSENT: systolic murmur Pulses: PRESENT: normal radial pulses, normal dorsalis pedis pulses GI/Abdominal exam: PRESENT: normal bowel sounds, soft. ABSENT: guarding, mass, tenderness Rectal exam: deferred Extremities exam: PRESENT: full ROM. Grade 1 bilateral pitting edema ABSENT: calf tenderness Musculoskeletal: PRESENT: full ROM. ABSENT: deformity Neurological exam: PRESENT: alert, Awake, Oriented to person, Oriented to place , Oriented to time, reflexes normal, CN II-XII grossly intact. ABSENT: motor sensory deficit Psychiatric exam: PRESENT: appropriate affect, normal mood. ABSENT: homicidal ideation, suicidal ideation Skin exam: PRESENT: intact, dry, warm. ABSENT: rash Results Laboratory Results: Laboratory 07/13/16 07/13/16 07/13/16 09:46 09:46 09:46 WBC 10.4 RBC 3.17 L Hgb 9.3 L Hct 26.7 L MCV 84 MCH 29.5 MCHC 35.0 RDW 16.3 H Plt Count 185 Seg Neutrophils % 92.5 H Lymphocytes % 5.1 L Monocytes % 1.9 L Eosinophils % 0.0 Basophils % 0.5 Absolute Neutrophils 9.6 H Absolute Lymphocytes 0.5 Absolute Monocytes 0.2 Absolute Eosinophils 0.0 Absolute Basophils 0.0 Sodium 140.2 Potassium 5.0 D Chloride 110 H Carbon Dioxide 23 Anion Gap 7 BUN 82 H Creatinine 6.86 H Est GFR ( Amer) 9 L Est GFR (Non-Af Amer) 7 L Glucose 132 H Calcium 7.9 L Total Bilirubin 0.5 Direct Bilirubin 0.3 Indirect Bilirubin Not Reportable Neonat Total Bilirubin Not Reportable AST 14 ALT 37 Alkaline Phosphatase 31 L Total Protein 4.6 L Albumin 2.4 L Lipase Serum HCG, Qual NEGATIVE Urine Color Urine Appearance Urine pH Ur Specific [employer] Urine Protein Urine Glucose (UA) Urine Ketones Urine Blood Urine Nitrite Urine Bilirubin Urine Urobilinogen Ur Leukocyte Esterase Urine WBC (Auto) Urine RBC (Auto) Urine Bacteria (Auto) Urine Mucus (Auto) Urine Ascorbic Acid 07/13/16 07/13/16 09:46 10:18 WBC RBC Hgb Hct MCV MCH MCHC RDW Plt Count Seg Neutrophils % Lymphocytes % Monocytes % Eosinophils % Basophils % Absolute Neutrophils Absolute Lymphocytes Absolute Monocytes Absolute Eosinophils Absolute Basophils Sodium Potassium Chloride Carbon Dioxide Anion Gap BUN Creatinine Est GFR ( Amer) Est GFR (Non-Af Amer) Glucose Calcium Total Bilirubin Direct Bilirubin Indirect Bilirubin Neonat Total Bilirubin AST ALT Alkaline Phosphatase Total Protein Albumin Lipase 315.0 H Serum HCG, Qual Urine Color STRAW Urine Appearance CLEAR Urine pH 5.0 Ur Specific [employer] 1.009 Urine Protein >=500 H Urine Glucose (UA) 150 H Urine Ketones NEGATIVE Urine Blood NEGATIVE Urine Nitrite NEGATIVE Urine Bilirubin NEGATIVE Urine Urobilinogen NEGATIVE Ur Leukocyte Esterase NEGATIVE Urine WBC (Auto) 4 Urine RBC (Auto) 1 Urine Bacteria (Auto) TRACE Urine Mucus (Auto) RARE Urine Ascorbic Acid NEGATIVE Impressions: Abdominal ultrasound done yesterday, 07/12/2016 showed multiple gallstones. Assessment & Plan - Diagnosis (1) Uremia Is this a current diagnosis for this admission?: YesPlan: Patient is presenting with uremic symptoms and needs to be started on renal replacement therapy as soon as possible. Patient is supposed to have an acute peritoneal dialysis start after peritoneal dialysis catheter placement however it is complicated by a new finding of cholelithiasis with elevated lipase and impending acute pancreatitis that may also contribute to the patient's ongoing symptoms. So today I had a discussion with vascular surgeon Dr. Rey Carnes , general surgeon Dr. Sewell, and the patient herself. Our therapeutic option would be to place a peritoneal dialysis catheter and start the patient on acute peritoneal dialysis. However if the patient started having more issues with regards to her cholelithiasis she may be more prone to infection once the peritoneal dialysis catheter is in with the risks of more peritonitis if cholecystectomy is deemed to be necessary at that time. The other option is to take care of the cholelithiasis at this time by doing cholecystectomy and let it heal prior to starting peritoneal dialysis initiation. Meanwhile we will place a PermCath for temporary hemodialysis until we are able to start her on peritoneal dialysis once deemed appropriate after cholecystectomy. Upon discussion with the patient and her they chose the latter and agreed to have a PermCath placed to do hemodialysis acutely instead of peritoneal dialysis. Dr. Carnes and Dr. Sewell are both in agreement with the plan. So we will proceed accordingly. Dr. Seewll has scheduled the patient for simultaneous cholecystectomy and PermCath placement tomorrow. We will plan to do her first dialysis on Wednesday unless she becomes so symptomatic tomorrow that would require emergency hemodialysis. (2) End stage renal disease Is this a current diagnosis for this admission?: YesPlan: We will start with peritoneal dialysis once per PermCath is placed. (3) Focal segmental glomerulosclerosis Is this a current diagnosis for this admission?: YesPlan: Status post kidney biopsy. She has nephrotic range proteinuria. Continue current dose of prednisone. (4) Nausea Is this a current diagnosis for this admission?: YesPlan: Likely due to a combination of uremia and cholelithiasis with impending pancreatitis. (5) Cholelithiasis Is this a current diagnosis for this admission?: YesPlan: For cholecystectomy. (6) Anemia in chronic kidney disease (CKD) Is this a current diagnosis for this admission?: YesPlan: We will start Procrit on dialysis. (7) Steroid-induced diabetes mellitus Is this a current diagnosis for this admission?: YesPlan: Continue insulin. (8) Hyperphosphatemia Is this a current diagnosis for this admission?: Yes (9) Hypertension Is this a current diagnosis for this admission?: YesPlan: Continue current medications. - Notes Notes: Thank you much for this consultation. Discussed the case with the patient, her , Dr. Carnes, and Dr. Burgos. - Time Time Spent: Greater than 70 Minutes
[2016-07-13] MEDS: FAMOTIDINE 20 MG TABLET PO SCH (22:14)
[2016-07-13] MEDS: CARVEDILOL 12.5 MG TABLET PO SCH (22:14)
[2016-07-13] MEDS: ONDANSETRON 4 MG TAB.RAPDIS PO PRN (23:27)
[2016-07-14 04:51] LABS: ABSOLUTE BASOPHILS # (AUTO) 0.1 10^3/uL (0.0-0.2); ABSOLUTE EOSINOPHILS # (AUTO) 0.1 10^3/uL (0.0-0.6); ABSOLUTE LYMPHOCYTES (AUTO) 1.4 10^3/uL (0.5-4.7); ABSOLUTE MONOCYTES (AUTO) 0.4 10^3/uL (0.1-1.4); ABSOLUTE NEUT (AUTO) 6.7 10^3/uL (1.7-8.2); BASOPHILS % (AUTO) 0.6 % (0-2); EOSINOPHILS % (AUTO) 0.6 % (0-6); HEMATOCRIT 25.3 % (36.0-47.0); HEMOGLOBIN 8.7 g/dL (12.0-15.5); HGB HCT DIFFERENCE 0.8; LYMPHOCYTES % (AUTO) 16.1 % (13-45); MEAN CORPUSCULAR HEMOGLOBIN 28.7 pg (27.0-33.4); MEAN CORPUSCULAR HGB CONC 34.2 g/dL (32.0-36.0); MEAN CORPUSCULAR VOLUME 84 fl (80-97); MONOCYTES % (AUTO) 4.6 % (3-13); RED BLOOD COUNT 3.02 10^6/uL (3.72-5.28); SEGMENTED NEUTROPHILS % (AUTO) 78.1 % (42-78); WHITE BLOOD COUNT 8.6 10^3/uL (4.0-10.5)
[2016-07-14 05:06] LABS: ALANINE AMINOTRANSFERASE 33 U/L (9-52); ALBUMIN 2.1 g/dL (3.5-5.0); ALKALINE PHOSPHATASE 32 U/L (38-126); ANION GAP 5 (5-19); ASPARTATE AMINO TRANSFERASE 11 U/L (14-36); BILIRUBIN,DIRECT 0.2 mg/dL (0.0-0.4); BILIRUBIN,TOTAL 0.4 mg/dL (0.2-1.3); BLOOD UREA NITROGEN 77 mg/dL (7-20); CALCIUM 7.3 mg/dL (8.4-10.2); CARBON DIOXIDE 24 mmol/L (22-30); CHLORIDE 111 mmol/L (98-107); CREATININE RESULT 6.75 mg/dL (0.52-1.25); GLUCOSE 120 mg/dL (75-110); LIPASE 347.2 U/L (23-300); PHOSPHORUS 4.4 mg/dL (2.5-4.5); POTASSIUM 4.3 mmol/L (3.6-5.0); TOTAL PROTEIN 4.1 g/dL (6.3-8.2)
[2016-07-14] MEDS ORDERED: HYDROMORPHONE HCL INJ/PF 2 MG/ML AMPULE ONE (07:06)
[2016-07-14] MEDS ORDERED: MIDAZOLAM 2 MG/2 ML INJ ONE (07:06)
[2016-07-14] MEDS ORDERED: PROPOFOL INJ 200 MG/20 ML VIAL IV ONE (07:06)
[2016-07-14] MEDS ORDERED: ACETAMINOPHEN 100 ML IV ONE (07:06)
[2016-07-14] MEDS ORDERED: FENTANYL CITRATE INJ/PF 250 MCG/5 ML AMPULE ONE (07:06)
[2016-07-14] MEDS ORDERED: LIDOCAINE 0.5% INJ-PF (5 MG/ML) 50 ML SDV ONE (07:56)
[2016-07-14] MEDS ORDERED: BUPIVACAINE HCL 0.25 % INJ/PF (2.5 MG/1 ML) 30 ML VIAL ONE (07:56)
[2016-07-14] MEDS ORDERED: BACITRACIN INJ 50,000 UNIT VIAL ONE (07:57)
[2016-07-14] MEDS ORDERED: HYDROCORTISONE SOD SUCCINATE INJ/PF 100 MG/2 ML SDV ONE (08:11)
[2016-07-14] MEDS ORDERED: CEFAZOLIN INJ 1 GM VIAL ONE (08:34)
[2016-07-14] MEDS ORDERED: HYDRALAZINE HCL INJ/PF 20 MG/1 ML SDV ONE (08:54)
[2016-07-14] MEDS: PREDNISONE 20 MG TABLET PO SCH (10:14)
[2016-07-14] MEDS: FAMOTIDINE 20 MG TABLET PO SCH ×2 (10:14→22:22)
[2016-07-14] MEDS: HYDRALAZINE HCL 25 MG TABLET PO SCH ×2 (10:14→17:44)
[2016-07-14] MEDS: FUROSEMIDE 40 MG TABLET PO SCH ×2 (10:14→17:44)
[2016-07-14] MEDS: INSULIN GLARGINE,HUM.REC.ANLOG 300 UNIT/3 ML INSULN.PEN SUBCUT SCH (10:14)
[2016-07-14] MEDS: CARVEDILOL 12.5 MG TABLET PO SCH ×2 (10:14→22:23)
[2016-07-14] MEDS: CALCIUM CARBONATE 500 MG TAB.CHEW PO SCH ×3 (10:14→17:44)
[2016-07-14] MEDS ORDERED: METOCLOPRAMIDE HCL INJ/PF 10 MG/2 ML SDV ONE (12:23)
[2016-07-14] MEDS ORDERED: ONDANSETRON HCL INJ/PF 4 MG/2 ML SDV IV PRN (13:27)
[2016-07-14] MEDS ORDERED: NORMAL SALINE 1000 ML 1,000 ML IV PRN (13:28)
[2016-07-14] MEDS ORDERED: SUCCINYLCHOLINE CHLORIDE INJ 200 MG/10 ML VIAL ONE (14:31)
[2016-07-14] MEDS ORDERED: ROCURONIUM BROMIDE INJ 50 MG/5 ML VIAL IV ONE (14:31)
[2016-07-14] MEDS ORDERED: ONDANSETRON HCL INJ/PF 4 MG/2 ML SDV ONE (14:31)
[2016-07-14] MEDS ORDERED: PROMETHAZINE HCL INJ 25 MG/1 ML VIAL IV PRN (14:37)
--- NOTE | 2016-07-14 16:58 | PDOC PROGRESS REPORT ---
Subjective Progress Note for:: 07/14/16 Subjective:: Patient is immediately status post cholecystectomy and right PermCath placement. She is drowsy but arousable and has no particular complaints. Patient denies fever, chills, headache, new focal weakness, chest pain, shortness of breath, abdominal pain, nausea, vomiting, diarrhea, constipation. Physical Exam Vital Signs: Temp Pulse Resp BP Pulse Ox 97.6 F 71 18 148/76 H 98 07/14/16 16:01 07/14/16 16:01 07/14/16 16:01 07/14/16 16:01 07/14/16 16:01 Intake & Output 07/13/16 07/14/16 07/15/16 06:59 06:59 06:59 Intake Total 1220 900 Output Total 175 Balance 1220 725 Weight 120.5 kg GENERAL: No acute distress HEENT: Conjunctiva clear, nonicteric, moist mucous membranes, no JVD, midline trachea RESPIRATORY: Clear to auscultation bilaterally, no wheezes, no rhonchi CARDIAC: Regular rate and rhythm, no murmurs/gallops/rubs ABDOMEN: Soft, nondistended, mild diffuse tenderness appropriate for postoperative state, positive bowel sounds, no rebound, no guarding EXTREMETIES: No edema, cyanosis, clubbing NEUROLOGIC: Alert, oriented to person/place/time, CN's grossly intact, no focal deficits SKIN: No rash, wounds. PermCath right chest PSYCH: Normal mood, normal affect Results Laboratory Results: 07/14/16 04:19 07/14/16 04:19 07/14/16 07/14/16 04:19 04:19 WBC 8.6 RBC 3.02 L Hgb 8.7 L Hct 25.3 L MCV 84 MCH 28.7 MCHC 34.2 RDW 16.0 H Plt Count 149 L Seg Neutrophils % 78.1 H Lymphocytes % 16.1 Monocytes % 4.6 Eosinophils % 0.6 Basophils % 0.6 Absolute Neutrophils 6.7 Absolute Lymphocytes 1.4 Absolute Monocytes 0.4 Absolute Eosinophils 0.1 Absolute Basophils 0.1 Sodium 140.0 Potassium 4.3 Chloride 111 H Carbon Dioxide 24 Anion Gap 5 BUN 77 H Creatinine 6.75 H Est GFR ( Amer) 9 L Est GFR (Non-Af Amer) 7 L Glucose 120 H Calcium 7.3 L Phosphorus 4.4 Total Bilirubin 0.4 AST 11 L ALT 33 Alkaline Phosphatase 32 L Total Protein 4.1 L Albumin 2.1 L Lipase 347.2 H Impressions: Guidance Fluoroscopy 07/14/16 00:00 IMPRESSION: IMAGE(S) OBTAINED DURING PROCEDURE. Chest X-Ray 07/14/16 12:34 IMPRESSION: No acute findings following dialysis catheter placement. Assessment & Plan - Diagnosis (1) End stage renal disease Is this a current diagnosis for this admission?: YesPlan: Patient is followed by Dr. Becerril of nephrology as an outpatient. She has been seen by Dr. Clay of nephrology in the hospital. She has had a PermCath placed today. Dr. Clay is planning to initiate hemodialysis for now. It sounds like eventually patient will go to peritoneal dialysis when she recovers from her abdominal surgery. (2) Focal segmental glomerulosclerosis Is this a current diagnosis for this admission?: Yes (3) Cholelithiasis Is this a current diagnosis for this admission?: YesPlan: Status post cholecystectomy for 2016. Surgery managing. (4) Anemia in chronic kidney disease (CKD) Is this a current diagnosis for this admission?: YesPlan: Nephrology to continue Procrit on dialysis. (5) Hypertension Is this a current diagnosis for this admission?: YesPlan: Continue Coreg. (6) Steroid-induced diabetes mellitus Is this a current diagnosis for this admission?: YesPlan: Continue Lantus. Continue sliding scale insulin. - Time Time Spent with patient: 35 or more minutes
--- NOTE | 2016-07-14 18:33 | OPERATIVE REPORT E ---
Operative Report NAME: SHAKA JARQUIN : 1985 AGE: 31Y DATE OF SURGERY: 07/14/2016 ROOM: 533 PREOPERATIVE DIAGNOSIS: 1. CHOLELITHIASIS. 2. END STAGE RENAL DISEASE FOR EVENTFUL HEMODIALYSIS. POSTOPERATIVE DIAGNOSIS: 1. CHOLELITHIASIS. 2. END STAGE RENAL DISEASE FOR EVENTFUL HEMODIALYSIS. INDICATION: This is a 31-year-old female who came in with abdominal pains and an ultrasound noted gallstones. She is supposed to have a peritoneal dialysis catheter placed but in view of the gallstones and possible mild pancreatitis with elevated lipase to 315, it was decided to take out her gallbladder laparoscopically and put in a Perma-Cath for hemodialysis, eventful peritoneal catheter placement in 2-[address] Sadi Carnes. SURGEON: MICHAEL CAMPA M.D. ANESTHESIA: General. DESCRIPTION OF PROCEDURE: After adequate general anesthesia, the abdomen was then prepped and draped in the usual sterile fashion. Appropriate timeout was performed. Next, an infraumbilical elliptical incision was made and the fascia identified and opened. There appeared to be a small umbilical hernia. Next, a Carvajal trocar was inserted through the fascia and through the abdominal cavity and CO2 insufflated to a pressure of 15 mmHg. Three added trocars were placed. A 12 mm in the subxiphoid area and two 5 mm in the right upper quadrant under direct vision. A camera was previously placed through the trocar site prior to placement of the other trocars. The gallbladder was then identified and quite noted to be with a lot of adhesions around it and adhesions were taken down with the use of Harmonic abner. Next, the cystic duct was then identified and clipped with hemoclips and divided between the hemoclips. Cystic artery was also identified and clipped proximally and divided with the use of Harmonic abner. The gallbladder was then dissected off the liver bed primarily with the use of the Harmonic abner. The gallbladder was subsequently removed and placed in an Endobag and brought out through the epigastric port. Hemostasis was noted. Next, the umbilical hernia appears to be just above the trocar fascial incision site and the two incisions were then joined through dividing a small bridge roughly about 5 mm in diameter. Next, the hernia was actually peritoneal fatty tissue was then removed. Next, the fascial defect and the hernia defect was then closed with [id number] sutures using 0 Prolene. About 3 sutures were placed. Next, the inner part of the umbilicus was subsequently tucked into the fascia with 3-0 Vicryl. The skin was then closed with running subcuticular closure using 4-0 Vicryl undyed. This was also used to the other incision sites. A single suture of 2-0 Vicryl was used to close the fascial defect of the subxiphoid incision. Following this, the incision sites were then dressed with Dermabond. Needle, instrument and sponge count were all correct and estimated blood loss was minimal. The right neck and upper chest were then prepped and draped in the usual sterile fashion. With the use of the ultrasound, the right internal jugular vein was then identified but punctured. A guidewire placed through the needle into the superior vena cava under fluoroscopy guidance. It was subsequently serially dilated. The puncture site was previously enlarged to about 8 mm long. Next, a sheath was then passed through the guidewire. In the meantime, another incision was made just below the right clavicle about 1 cm long. A tunnel was then made through the two incisions pulling up the Perma-Catheter which is 27 cm long. The dilator under the sheath was then removed and Perma-Cath threaded down through the sheath into the superior vena cava. The sheath was subsequently removed by pulling it up and splitting it. Next, the Perma-Cath limbs were then irrigated nicely with heparinized saline solution. It could also aspirate blood nicely. Also with the use of fluoroscopy, there is no tightness of kinking of the area of the right internal jugular vein entry of the Perma-Cath. Next, the Perma-Cath was placed right at the right atrium. The neck incisions were then closed with running suture using 4-0 Vicryl undyed and the infraclavicular incision also closed with 4-0 Vicryl undyed over the catheter. The phalanges of the Perma-Cath was then anchored to the skin with 3-0 Prolene. Single suture of 3-0 Prolene was then placed on the chest incision for better approximation of the skin edges. Sterile dressings then placed over the incision sites. Needle, instrument and sponge counts were all correct. Estimated blood loss was about 10 mL. The patient tolerated the procedure well. Patient brought to the recovery room in satisfactory condition. A chest x-ray will be obtained in the recovery room to make sure there is no pneumothorax. DICTATING PHYSICIAN: MICHAEL CAMPA M.D. [id number] PHY#: [id number] ID: [id number] JOB#: [id number] ACCT: [id number] cc:MICHAEL CAMPA M.D. >
--- NOTE | 2016-07-14 20:56 | PDOC PROGRESS REPORT ---
Subjective Progress Note for:: 07/14/16 Subjective:: Patient underwent laparoscopic cholecystectomy and right IJ PermCath placement today by Dr. Burgos. It was uneventful and patient tolerated procedure well without any problems or complications. Patient said that she vomited after she woke up from the surgery. But currently she denies any nausea nor shortness of breath nor any other complaints except for some pain over the incision sites. She is otherwise hemodynamically stable. Physical Exam Vital Signs: Temp Pulse Resp BP Pulse Ox 98.1 F 68 17 138/87 H 100 07/14/16 18:04 07/14/16 18:04 07/14/16 18:04 07/14/16 18:04 07/14/16 18:04 Intake & Output 07/13/16 07/14/16 07/15/16 06:59 06:59 06:59 Intake Total 1220 1627 Output Total 175 Balance 1220 1452 Weight 120.5 kg Exam: General appearance: PRESENT: no acute distress, cooperative, well-developed, well-nourished Head exam: PRESENT: atraumatic, normocephalic Eye exam: PRESENT: conjunctiva pale, PERRLA. ABSENT: scleral icterus Neck exam: ABSENT: JVD; right IJ PermCath in place without any bleeding. Respiratory exam: PRESENT: Normal breath sounds. ABSENT: crackles, rales, rhonchi, unlabored, wheezes Cardiovascular exam: PRESENT: Regular rate rhythm -+S1, +S2. ABSENT: diastolic murmur, systolic murmur GI/Abdominal exam: PRESENT: normal bowel sounds, soft. Mild tenderness over her incision sites. ABSENT: guarding, mass Extremities exam: ABSENT: No edema Neurological exam: PRESENT: alert, awake, oriented to person, place and time. Skin exam: PRESENT: dry, warm, Results Laboratory Results: 07/14/16 04:19 07/14/16 04:19 07/14/16 07/14/16 04:19 04:19 WBC 8.6 RBC 3.02 L Hgb 8.7 L Hct 25.3 L MCV 84 MCH 28.7 MCHC 34.2 RDW 16.0 H Plt Count 149 L Seg Neutrophils % 78.1 H Lymphocytes % 16.1 Monocytes % 4.6 Eosinophils % 0.6 Basophils % 0.6 Absolute Neutrophils 6.7 Absolute Lymphocytes 1.4 Absolute Monocytes 0.4 Absolute Eosinophils 0.1 Absolute Basophils 0.1 Sodium 140.0 Potassium 4.3 Chloride 111 H Carbon Dioxide 24 Anion Gap 5 BUN 77 H Creatinine 6.75 H Est GFR ( Amer) 9 L Est GFR (Non-Af Amer) 7 L Glucose 120 H Calcium 7.3 L Phosphorus 4.4 Total Bilirubin 0.4 AST 11 L ALT 33 Alkaline Phosphatase 32 L Total Protein 4.1 L Albumin 2.1 L Lipase 347.2 H Impressions: Guidance Fluoroscopy 07/14/16 00:00 IMPRESSION: IMAGE(S) OBTAINED DURING PROCEDURE. Chest X-Ray 07/14/16 12:34 IMPRESSION: No acute findings following dialysis catheter placement. Assessment & Plan - Diagnosis (1) Uremia Is this a current diagnosis for this admission?: YesPlan: Patient continues to be nauseated and tired. We will initiate renal replacement therapy via newly placed PermCath with hemodialysis tomorrow. (2) End stage renal disease Is this a current diagnosis for this admission?: YesPlan: We will start with hemodialysis once per PermCath is placed. Will plan for first dialysis treatment tomorrow. (3) Focal segmental glomerulosclerosis Is this a current diagnosis for this admission?: YesPlan: Status post kidney biopsy. She has nephrotic range proteinuria. Continue current dose of prednisone. (4) Nausea Is this a current diagnosis for this admission?: YesPlan: Likely due to a combination of uremia and cholelithiasis with impending pancreatitis. (5) Cholelithiasis Is this a current diagnosis for this admission?: YesPlan: Status post cholecystectomy today by Dr. Sewell. (6) Anemia in chronic kidney disease (CKD) Is this a current diagnosis for this admission?: YesPlan: We will start Procrit on dialysis. (7) Steroid-induced diabetes mellitus Is this a current diagnosis for this admission?: YesPlan: Continue insulin. (8) Hyperphosphatemia Is this a current diagnosis for this admission?: Yes (9) Hypertension Is this a current diagnosis for this admission?: YesPlan: Continue current medications. - Time Time with patient: 15-25 minutes
[2016-07-14] MEDS ORDERED: EPOETIN ALFA INJ 20000 UNIT/1 ML VIAL (RENAL) IV PRN (22:15)
[2016-07-15 04:57] LABS: ABSOLUTE LYMPHOCYTES (AUTO) 1.4 10^3/uL (0.5-4.7); ABSOLUTE MONOCYTES (AUTO) 0.4 10^3/uL (0.1-1.4); ABSOLUTE NEUT (AUTO) 5.9 10^3/uL (1.7-8.2); BASOPHILS % (AUTO) 0.4 % (0-2); EOSINOPHILS % (AUTO) 0.5 % (0-6); HEMATOCRIT 23.4 % (36.0-47.0); HEMOGLOBIN 8.2 g/dL (12.0-15.5); HGB HCT DIFFERENCE 1.2; MEAN CORPUSCULAR HEMOGLOBIN 29.2 pg (27.0-33.4); MEAN CORPUSCULAR HGB CONC 35.1 g/dL (32.0-36.0); MEAN CORPUSCULAR VOLUME 83 fl (80-97); MONOCYTES % (AUTO) 4.7 % (3-13); RED BLOOD COUNT 2.81 10^6/uL (3.72-5.28); RED CELL DISTRIBUTION WIDTH 16.7 % (11.5-14.0); SEGMENTED NEUTROPHILS % (AUTO) 76.4 % (42-78); WHITE BLOOD COUNT 7.8 10^3/uL (4.0-10.5)
[2016-07-15 04:58] LABS: PROTHROMBIN TIME 12.4 SEC (11.4-15.4)
[2016-07-15 04:59] LABS: PARTIAL THROMBOPLASTIN TIME 24.1 SEC (23.5-35.8)
[2016-07-15 05:26] LABS: ALANINE AMINOTRANSFERASE 43 U/L (9-52); ALKALINE PHOSPHATASE 30 U/L (38-126); ANION GAP 5 (5-19); ASPARTATE AMINO TRANSFERASE 18 U/L (14-36); BILIRUBIN,DIRECT 0.2 mg/dL (0.0-0.4); BILIRUBIN,TOTAL 0.4 mg/dL (0.2-1.3); BLOOD UREA NITROGEN 71 mg/dL (7-20); CALCIUM 7.8 mg/dL (8.4-10.2); CARBON DIOXIDE 24 mmol/L (22-30); CHLORIDE 109 mmol/L (98-107); CREATININE RESULT 7.02 mg/dL (0.52-1.25); GLUCOSE 96 mg/dL (75-110); POTASSIUM 4.5 mmol/L (3.6-5.0); SODIUM 138.3 mmol/L (137-145); TOTAL PROTEIN 3.9 g/dL (6.3-8.2)
[2016-07-15] MEDS ORDERED: EPOETIN ALFA INJ 20000 UNIT/1 ML VIAL (RENAL) IV PRN (08:10)
[2016-07-15] MEDS: PREDNISONE 20 MG TABLET PO SCH (08:10)
[2016-07-15] MEDS: CALCIUM CARBONATE 500 MG TAB.CHEW PO SCH ×3 (08:10→17:17)
[2016-07-15] MEDS: CARVEDILOL 12.5 MG TABLET PO SCH ×2 (10:07→21:38)
[2016-07-15] MEDS: INSULIN GLARGINE,HUM.REC.ANLOG 300 UNIT/3 ML INSULN.PEN SUBCUT SCH (10:07)
[2016-07-15] MEDS: HYDRALAZINE HCL 25 MG TABLET PO SCH ×2 (10:07→17:17)
[2016-07-15] MEDS: FAMOTIDINE 20 MG TABLET PO SCH ×2 (10:07→21:38)
[2016-07-15] MEDS: FUROSEMIDE 40 MG TABLET PO SCH ×2 (10:07→17:17)
--- NOTE | 2016-07-15 16:15 | PDOC PROGRESS REPORT ---
Subjective Progress Note for:: 07/15/16 Subjective:: No issues reported. Patient started on clear liquid diet by surgery. Patient is tolerating clear liquids. Positive flatus. No bowel movement. Patient denies fever, chills, headache, new focal weakness, chest pain, shortness of breath, abdominal pain, nausea, vomiting, diarrhea, constipation. Physical Exam Vital Signs: Temp Pulse Resp BP Pulse Ox 97.9 F 88 17 141/80 H 100 07/15/16 11:26 07/15/16 11:26 07/15/16 11:26 07/15/16 11:26 07/15/16 11:26 Intake & Output 07/14/16 07/15/16 07/16/16 06:59 06:59 06:59 Intake Total 1220 3137 960 Output Total 175 Balance 1220 2962 960 Weight 120.5 kg 120.5 kg GENERAL: No acute distress HEENT: Conjunctiva clear, nonicteric, moist mucous membranes, no JVD, midline trachea RESPIRATORY: Clear to auscultation bilaterally, no wheezes, no rhonchi CARDIAC: Regular rate and rhythm, no murmurs/gallops/rubs ABDOMEN: Soft, nondistended, mild diffuse tenderness appropriate for postoperative state, positive bowel sounds, no rebound, no guarding EXTREMETIES: No edema, cyanosis, clubbing NEUROLOGIC: Alert, oriented to person/place/time, CN's grossly intact, no focal deficits SKIN: No rash, wounds. PermCath right chest PSYCH: Normal mood, normal affect Results Laboratory Results: 07/15/16 04:21 07/15/16 04:21 07/14/16 07/15/16 07/15/16 04:19 04:21 04:21 WBC 7.8 RBC 2.81 L Hgb 8.2 L Hct 23.4 L MCV 83 MCH 29.2 MCHC 35.1 RDW 16.7 H Plt Count 147 L Seg Neutrophils % 76.4 Lymphocytes % 18.0 Monocytes % 4.7 Eosinophils % 0.5 Basophils % 0.4 Absolute Neutrophils 5.9 Absolute Lymphocytes 1.4 Absolute Monocytes 0.4 Absolute Eosinophils 0.0 Absolute Basophils 0.0 Sodium 138.3 Potassium 4.5 Chloride 109 H Carbon Dioxide 24 Anion Gap 5 BUN 71 H Creatinine 7.02 H Est GFR ( Amer) 8 L Est GFR (Non-Af Amer) 7 L Glucose 96 Calcium 7.8 L Total Bilirubin 0.4 AST 18 ALT 43 Alkaline Phosphatase 30 L Total Protein 3.9 L Albumin 2.0 L PTH Intact 165 H Impressions: Guidance Fluoroscopy 07/14/16 00:00 IMPRESSION: IMAGE(S) OBTAINED DURING PROCEDURE. Chest X-Ray 07/14/16 12:34 IMPRESSION: No acute findings following dialysis catheter placement. Assessment & Plan - Diagnosis (1) End stage renal disease Is this a current diagnosis for this admission?: YesPlan: Patient is followed by Dr. Becerril of nephrology as an outpatient. She has been seen by Dr. Clay of nephrology in the hospital. She has had a PermCath placed on 07/14/2016. Dr. Clay is planning to initiate hemodialysis for now. It sounds like eventually patient will go to peritoneal dialysis when she recovers from her abdominal surgery. Hepatitis B surface antigen negative. PPD also negative as outpatient as ordered by Dr. Becerril of nephrology. (2) Focal segmental glomerulosclerosis Is this a current diagnosis for this admission?: YesPlan: On prednisone 40 mg daily. (3) Cholelithiasis Is this a current diagnosis for this admission?: YesPlan: Status post cholecystectomy 07/14/2016. Surgery managing. Patient was started on clear liquids. Discontinue IV fluids. (4) Anemia in chronic kidney disease (CKD) Is this a current diagnosis for this admission?: YesPlan: Nephrology to continue Procrit on dialysis. (5) Hypertension Is this a current diagnosis for this admission?: YesPlan: Continue Coreg. (6) Steroid-induced diabetes mellitus Is this a current diagnosis for this admission?: YesPlan: Continue Lantus. Continue sliding scale insulin. - Time Time Spent with patient: 25-34 minutes
--- NOTE | 2016-07-15 21:02 | PDOC PROGRESS REPORT ---
Subjective Progress Note for:: 07/15/16 Subjective:: I saw the patient during dialysis this morning at around 9 AM. This is her first dialysis treatment. She is being dialyzed on her newly placed PermCath. She tolerated it very well without any problems. Patient was able to eat breakfast this morning without any without any nausea or vomiting. Physical Exam Vital Signs: Temp Pulse Resp BP Pulse Ox 98.3 F 92 17 142/83 H 100 07/15/16 15:25 07/15/16 15:25 07/15/16 15:25 07/15/16 15:25 07/15/16 15:25 Intake & Output 07/14/16 07/15/16 07/16/16 06:59 06:59 06:59 Intake Total 1220 3137 1160 Output Total 175 Balance 1220 2962 1160 Weight 120.5 kg 120.5 kg Vital signs during dialysis: Blood pressure 172/102, heart rate 80, blood flow rate of 250 mL per minute, dialysate flow rate of 500 mL per minute. Exam: General appearance: PRESENT: no acute distress, cooperative, well-developed, well-nourished Head exam: PRESENT: atraumatic, normocephalic Eye exam: PRESENT: conjunctiva pale, PERRLA. ABSENT: scleral icterus Neck exam: ABSENT: JVD Respiratory exam: PRESENT: Normal breath sounds. ABSENT: crackles, rales, rhonchi, unlabored, wheezes Cardiovascular exam: PRESENT: Regular rate rhythm -+S1, +S2. ABSENT: diastolic murmur, systolic murmur GI/Abdominal exam: PRESENT: normal bowel sounds, soft. ABSENT: guarding, mass, tenderness Extremities exam: Bilateral trace edema Neurological exam: PRESENT: alert, awake, oriented to person, place and time. Skin exam: PRESENT: dry, warm, Results Laboratory Results: 07/15/16 04:21 07/15/16 04:21 07/14/16 07/15/16 07/15/16 04:19 04:21 04:21 WBC 7.8 RBC 2.81 L Hgb 8.2 L Hct 23.4 L MCV 83 MCH 29.2 MCHC 35.1 RDW 16.7 H Plt Count 147 L Seg Neutrophils % 76.4 Lymphocytes % 18.0 Monocytes % 4.7 Eosinophils % 0.5 Basophils % 0.4 Absolute Neutrophils 5.9 Absolute Lymphocytes 1.4 Absolute Monocytes 0.4 Absolute Eosinophils 0.0 Absolute Basophils 0.0 Sodium 138.3 Potassium 4.5 Chloride 109 H Carbon Dioxide 24 Anion Gap 5 BUN 71 H Creatinine 7.02 H Est GFR ( Amer) 8 L Est GFR (Non-Af Amer) 7 L Glucose 96 Calcium 7.8 L Total Bilirubin 0.4 AST 18 ALT 43 Alkaline Phosphatase 30 L Total Protein 3.9 L Albumin 2.0 L PTH Intact 165 H Impressions: Guidance Fluoroscopy 07/14/16 00:00 IMPRESSION: IMAGE(S) OBTAINED DURING PROCEDURE. Chest X-Ray 07/14/16 12:34 IMPRESSION: No acute findings following dialysis catheter placement. Assessment & Plan - Diagnosis (1) Uremia Is this a current diagnosis for this admission?: YesPlan: Patient is currently being dialyzed.We did dialysis today for 2.5 hours, using the patient's PermCath, with 2 potassium bath, blood flow rate of to 50 mL per minute, dialysate flow rate of I've 100 mL per minute, ultrafiltration 1 L, no heparin and Procrit with 20,000 units during dialysis intravenously. Patient was monitored and she was able to tolerate dialysis without problems or complications. (2) End stage renal disease Is this a current diagnosis for this admission?: YesPlan: We are currently awaiting acceptance of the patient for outpatient dialysis at [facility]. Once accepted [facility] I think the patient can be safely discharged home with 3 times a week dialysis. One she is healed from her cholecystectomy, the plan is to place peritoneal dialysis to start peritoneal dialysis treatment. Meanwhile we will continue outpatient hemodialysis treatment while she is healing. Patient is in agreement with the plan area (3) Focal segmental glomerulosclerosis Is this a current diagnosis for this admission?: YesPlan: Status post kidney biopsy. She has nephrotic range proteinuria. Continue current dose of prednisone. (4) Nausea Is this a current diagnosis for this admission?: YesPlan: Improved. (5) Cholelithiasis Is this a current diagnosis for this admission?: YesPlan: Status post cholecystectomy today by Dr. Sewell. (6) Anemia in chronic kidney disease (CKD) Is this a current diagnosis for this admission?: YesPlan: We will start Procrit on dialysis today. (7) Steroid-induced diabetes mellitus Is this a current diagnosis for this admission?: YesPlan: Continue insulin. (8) Hyperphosphatemia Is this a current diagnosis for this admission?: Yes (9) Hypertension Is this a current diagnosis for this admission?: YesPlan: Continue current medications. - Time Time with patient: 15-25 minutes
[2016-07-16 04:26] LABS: ABSOLUTE BASOPHILS # (AUTO) 0.1 10^3/uL (0.0-0.2); ABSOLUTE LYMPHOCYTES (AUTO) 1.3 10^3/uL (0.5-4.7); ABSOLUTE MONOCYTES (AUTO) 0.3 10^3/uL (0.1-1.4); ABSOLUTE NEUT (AUTO) 4.3 10^3/uL (1.7-8.2); BASOPHILS % (AUTO) 0.9 % (0-2); EOSINOPHILS % (AUTO) 0.4 % (0-6); HEMATOCRIT 24.7 % (36.0-47.0); HEMOGLOBIN 8.8 g/dL (12.0-15.5); HGB HCT DIFFERENCE 1.7; LYMPHOCYTES % (AUTO) 21.3 % (13-45); MEAN CORPUSCULAR HEMOGLOBIN 29.4 pg (27.0-33.4); MEAN CORPUSCULAR HGB CONC 35.7 g/dL (32.0-36.0); MEAN CORPUSCULAR VOLUME 82 fl (80-97); MONOCYTES % (AUTO) 4.8 % (3-13); SEGMENTED NEUTROPHILS % (AUTO) 72.6 % (42-78)
[2016-07-16 04:40] LABS: ALANINE AMINOTRANSFERASE 35 U/L (9-52); ALBUMIN 2.1 g/dL (3.5-5.0); ALKALINE PHOSPHATASE 32 U/L (38-126); ASPARTATE AMINO TRANSFERASE 16 U/L (14-36); BILIRUBIN,TOTAL 0.4 mg/dL (0.2-1.3); CALCIUM 7.9 mg/dL (8.4-10.2); CARBON DIOXIDE 30 mmol/L (22-30); CREATININE RESULT 5.46 mg/dL (0.52-1.25); GLUCOSE 92 mg/dL (75-110); LIPASE 218.7 U/L (23-300); MAGNESIUM 1.7 mg/dL (1.6-2.3); POTASSIUM 4.3 mmol/L (3.6-5.0)
[2016-07-16 04:48] LABS: ANION GAP 3 (5-19); BLOOD UREA NITROGEN 48 mg/dL (7-20); CHLORIDE 105 mmol/L (98-107); SODIUM 138.2 mmol/L (137-145)
[2016-07-16] MEDS: CALCIUM CARBONATE 500 MG TAB.CHEW PO SCH ×3 (07:49→16:24)
[2016-07-16] MEDS: PREDNISONE 20 MG TABLET PO SCH (07:49)
[2016-07-16] MEDS: INSULIN GLARGINE,HUM.REC.ANLOG 300 UNIT/3 ML INSULN.PEN SUBCUT SCH (10:00)
[2016-07-16] MEDS: FAMOTIDINE 20 MG TABLET PO SCH (10:02)
[2016-07-16] MEDS: HYDRALAZINE HCL 25 MG TABLET PO SCH ×2 (10:02→17:13)
[2016-07-16] MEDS: CARVEDILOL 12.5 MG TABLET PO SCH ×2 (10:02→21:39)
[2016-07-16] MEDS: FUROSEMIDE 40 MG TABLET PO SCH ×2 (10:03→17:13)
--- NOTE | 2016-07-16 12:27 | PDOC PROGRESS REPORT ---
Subjective Progress Note for:: 07/16/16 Subjective:: Patient is tolerating regular diet. She has no complaints. She would like to go home but is awaiting acceptance to [facility] dialysis center. Patient denies fever, chills, headache, new focal weakness, chest pain, shortness of breath, abdominal pain, nausea, vomiting, diarrhea, constipation. Physical Exam Vital Signs: Temp Pulse Resp BP Pulse Ox 98.5 F 97 13 132/76 H 100 07/16/16 07:43 07/16/16 07:43 07/16/16 07:43 07/16/16 07:43 07/16/16 07:43 Intake & Output 07/15/16 07/16/16 07/17/16 06:59 06:59 06:59 Intake Total 3137 2030 Output Total 175 2160 Balance 2962 -130 Weight 120.5 kg 122.3 kg GENERAL: No acute distress HEENT: Conjunctiva clear, nonicteric, moist mucous membranes, no JVD, midline trachea RESPIRATORY: Clear to auscultation bilaterally, no wheezes, no rhonchi CARDIAC: Regular rate and rhythm, no murmurs/gallops/rubs ABDOMEN: Soft, nondistended, nontender, positive bowel sounds, no rebound, no guarding EXTREMETIES: Trace edema NEUROLOGIC: Alert, oriented to person/place/time, CN's grossly intact, no focal deficits SKIN: No rash, wounds PSYCH: Normal mood, normal affect Results Laboratory Results: 07/16/16 04:08 07/16/16 04:08 07/16/16 07/16/16 04:08 04:08 WBC 6.0 RBC 3.00 L Hgb 8.8 L Hct 24.7 L MCV 82 MCH 29.4 MCHC 35.7 RDW 16.0 H Plt Count 137 L Seg Neutrophils % 72.6 Lymphocytes % 21.3 Monocytes % 4.8 Eosinophils % 0.4 Basophils % 0.9 Absolute Neutrophils 4.3 Absolute Lymphocytes 1.3 Absolute Monocytes 0.3 Absolute Eosinophils 0.0 Absolute Basophils 0.1 Sodium 138.2 Potassium 4.3 Chloride 105 Carbon Dioxide 30 Anion Gap 3 L BUN 48 H D Creatinine 5.46 H Est GFR ( Amer) 11 L Est GFR (Non-Af Amer) 9 L Glucose 92 Calcium 7.9 L Magnesium 1.7 Total Bilirubin 0.4 AST 16 ALT 35 Alkaline Phosphatase 32 L Total Protein 4.0 L Albumin 2.1 L Lipase 218.7 Impressions: Guidance Fluoroscopy 07/14/16 00:00 IMPRESSION: IMAGE(S) OBTAINED DURING PROCEDURE. Chest X-Ray 07/14/16 12:34 IMPRESSION: No acute findings following dialysis catheter placement. Assessment & Plan - Diagnosis (1) End stage renal disease Is this a current diagnosis for this admission?: YesPlan: Patient is followed by Dr. Becerril of nephrology as an outpatient. She has been seen by Dr. Clay of nephrology in the hospital. She has had a PermCath placed on 07/14/2016. Dr. Clay is planning to initiate hemodialysis for now. It sounds like eventually patient will go to peritoneal dialysis when she recovers from her abdominal surgery. Hepatitis B surface antigen negative. PPD also negative as outpatient as ordered by Dr. Becerril of nephrology. Patient is stable for discharge home once she has been accepted for outpatient hemodialysis at [facility]. (2) Focal segmental glomerulosclerosis Is this a current diagnosis for this admission?: YesPlan: On prednisone 40 mg daily. (3) Cholelithiasis Is this a current diagnosis for this admission?: YesPlan: Status post cholecystectomy 07/14/2016. Surgery managing. Tolerating regular diet. Surgery has signed off and recommended patient to follow-up for postop check as an outpatient. (4) Anemia in chronic kidney disease (CKD) Is this a current diagnosis for this admission?: YesPlan: Nephrology to continue Procrit on dialysis. (5) Hypertension Is this a current diagnosis for this admission?: YesPlan: Continue Coreg and hydralazine. (6) Steroid-induced diabetes mellitus Is this a current diagnosis for this admission?: YesPlan: Continue Lantus. Continue sliding scale insulin. - Time Time Spent with patient: 25-34 minutes
[2016-07-16] MEDS ORDERED: ACETAMINOPHEN 325 MG TABLET PO PRN (15:24)
--- NOTE | 2016-07-16 20:00 | PDOC PROGRESS REPORT ---
Subjective Progress Note for:: 07/16/16 Subjective:: Patient is doing fine. She just have a little bit of pain over her incision site. She denies anymore nausea and is eating regular food today. She said she feels like she has slight shortness of breath but it could be related to anxiety as well. She still makes urine. Physical Exam Vital Signs: Temp Pulse Resp BP Pulse Ox 97.5 F 104 H 22 H 138/91 H 99 07/16/16 16:00 07/16/16 16:00 07/16/16 16:00 07/16/16 16:00 07/16/16 16:00 Intake & Output 07/15/16 07/16/16 07/17/16 06:59 06:59 06:59 Intake Total 3137 2030 520 Output Total 175 2160 9 Balance 2962 -130 511 Weight 120.5 kg 122.3 kg Exam: General appearance: PRESENT: no acute distress, cooperative, well-developed, well-nourished Head exam: PRESENT: atraumatic, normocephalic Eye exam: PRESENT: conjunctiva pink, PERRLA. ABSENT: scleral icterus Neck exam: ABSENT: JVD Respiratory exam: PRESENT: Normal breath sounds. ABSENT: crackles, rales, rhonchi, unlabored, wheezes Cardiovascular exam: PRESENT: Regular rate rhythm -+S1, +S2. ABSENT: diastolic murmur, systolic murmur GI/Abdominal exam: PRESENT: normal bowel sounds, soft. ABSENT: guarding, mass, tenderness Extremities exam: Trace bilateral pitting edema edema Neurological exam: PRESENT: alert, awake, oriented to person, place and time. Skin exam: PRESENT: dry, warm, Results Laboratory Results: 07/16/16 04:08 07/16/16 04:08 07/16/16 07/16/16 04:08 04:08 WBC 6.0 RBC 3.00 L Hgb 8.8 L Hct 24.7 L MCV 82 MCH 29.4 MCHC 35.7 RDW 16.0 H Plt Count 137 L Seg Neutrophils % 72.6 Lymphocytes % 21.3 Monocytes % 4.8 Eosinophils % 0.4 Basophils % 0.9 Absolute Neutrophils 4.3 Absolute Lymphocytes 1.3 Absolute Monocytes 0.3 Absolute Eosinophils 0.0 Absolute Basophils 0.1 Sodium 138.2 Potassium 4.3 Chloride 105 Carbon Dioxide 30 Anion Gap 3 L BUN 48 H D Creatinine 5.46 H Est GFR ( Amer) 11 L Est GFR (Non-Af Amer) 9 L Glucose 92 Calcium 7.9 L Magnesium 1.7 Total Bilirubin 0.4 AST 16 ALT 35 Alkaline Phosphatase 32 L Total Protein 4.0 L Albumin 2.1 L Lipase 218.7 Impressions: Guidance Fluoroscopy 07/14/16 00:00 IMPRESSION: IMAGE(S) OBTAINED DURING PROCEDURE. Chest X-Ray 07/14/16 12:34 IMPRESSION: No acute findings following dialysis catheter placement. Assessment & Plan - Diagnosis (1) Uremia Is this a current diagnosis for this admission?: YesPlan: Continue hemodialysis treatment times a week. Symptoms are resolving. (2) End stage renal disease Is this a current diagnosis for this admission?: YesPlan: Plan for dialysis tomorrow here in the hospital. Awaiting acceptance of [facility] for the patient to continue outpatient hemodialysis. (3) Focal segmental glomerulosclerosis Is this a current diagnosis for this admission?: YesPlan: Status post kidney biopsy. She has nephrotic range proteinuria. Continue current dose of prednisone. (4) Nausea Is this a current diagnosis for this admission?: YesPlan: Resolved. (5) Cholelithiasis Is this a current diagnosis for this admission?: YesPlan: Status post cholecystectomy today by Dr. Sewell. (6) Anemia in chronic kidney disease (CKD) Is this a current diagnosis for this admission?: YesPlan: Continue Procrit during dialysis.. (7) Steroid-induced diabetes mellitus Is this a current diagnosis for this admission?: YesPlan: Continue insulin. (8) Hyperphosphatemia Is this a current diagnosis for this admission?: Yes (9) Hypertension Is this a current diagnosis for this admission?: YesPlan: Continue current medications. - Time Time with patient: 15-25 minutes
[2016-07-16] MEDS ORDERED: FOLIC ACID/VITAMIN B COMP W-C CAPSULE PO ONE (20:30)
[2016-07-16] MEDS: ONDANSETRON 4 MG TAB.RAPDIS PO PRN (20:44)
[2016-07-17 01:39] VITALS: BP 147/95
[2016-07-17 04:43] LABS: ABSOLUTE LYMPHOCYTES (AUTO) 0.8 10^3/uL (0.5-4.7); ABSOLUTE MONOCYTES (AUTO) 0.4 10^3/uL (0.1-1.4); ABSOLUTE NEUT (AUTO) 5.9 10^3/uL (1.7-8.2); BASOPHILS % (AUTO) 0.5 % (0-2); EOSINOPHILS % (AUTO) 0.3 % (0-6); HEMATOCRIT 22.7 % (36.0-47.0); HEMOGLOBIN 8.1 g/dL (12.0-15.5); HGB HCT DIFFERENCE 1.6; LYMPHOCYTES % (AUTO) 11.5 % (13-45); MEAN CORPUSCULAR HEMOGLOBIN 29.4 pg (27.0-33.4); MEAN CORPUSCULAR HGB CONC 35.6 g/dL (32.0-36.0); MEAN CORPUSCULAR VOLUME 83 fl (80-97); MONOCYTES % (AUTO) 4.9 % (3-13); RED BLOOD COUNT 2.75 10^6/uL (3.72-5.28); SEGMENTED NEUTROPHILS % (AUTO) 82.8 % (42-78); WHITE BLOOD COUNT 7.2 10^3/uL (4.0-10.5)
[2016-07-17 05:00] LABS: ANION GAP 5 (5-19); BLOOD UREA NITROGEN 62 mg/dL (7-20); CALCIUM 7.7 mg/dL (8.4-10.2); CARBON DIOXIDE 28 mmol/L (22-30); CHLORIDE 106 mmol/L (98-107); CREATININE RESULT 6.63 mg/dL (0.52-1.25); GLUCOSE 112 mg/dL (75-110); POTASSIUM 4.5 mmol/L (3.6-5.0); SODIUM 138.5 mmol/L (137-145)
[2016-07-17] MEDS ORDERED: EPOETIN ALFA INJ 20000 UNIT/1 ML VIAL (RENAL) IV PRN ×2 (05:00→09:15)
[2016-07-17] MEDS ORDERED: FAMOTIDINE 20 MG TABLET PO SCH (10:00)
[2016-07-17] MEDS: INSULIN GLARGINE,HUM.REC.ANLOG 300 UNIT/3 ML INSULN.PEN SUBCUT SCH (11:37)
[2016-07-17] MEDS: CARVEDILOL 12.5 MG TABLET PO SCH (11:38)
[2016-07-17] MEDS: PREDNISONE 20 MG TABLET PO SCH (11:38)
[2016-07-17] MEDS: HYDRALAZINE HCL 25 MG TABLET PO SCH (11:39)
[2016-07-17] MEDS: CALCIUM CARBONATE 500 MG TAB.CHEW PO SCH ×2 (11:39→11:42)
[2016-07-17] MEDS: FUROSEMIDE 40 MG TABLET PO SCH (11:39)
--- NOTE | 2016-07-17 13:15 | PDOC PROGRESS REPORT ---
Subjective Progress Note for:: 07/17/16 Subjective:: I saw the patient during dialysis this morning at around 8:20 AM. She was feeling a little bit and she has but other than that she was doing fine on dialysis. Patient wanted to go home. She doesn't have anymore nausea. She doesn't have any pain on her incision sites either. Physical Exam Vital Signs: Temp Pulse Resp BP Pulse Ox 97.9 F 86 16 147/87 H 99 07/16/16 23:43 07/16/16 23:43 07/16/16 23:43 07/16/16 23:43 07/16/16 23:43 Intake & Output 07/16/16 07/17/16 07/18/16 06:59 06:59 06:59 Intake Total 2030 840 Output Total 2160 9 Balance -130 831 Weight 122.3 kg 123.2 kg Vital signs during dialysis: Blood pressure 174/98 pulse rate of 80 blood flow rate 250 mL per minute and dialysate flow rate of 500 mL per minute. Exam: General appearance: PRESENT: no acute distress, cooperative, well-developed, well-nourished Head exam: PRESENT: atraumatic, normocephalic Eye exam: PRESENT: conjunctiva pale, PERRLA. ABSENT: scleral icterus Neck exam: ABSENT: JVD Respiratory exam: PRESENT: Normal breath sounds. ABSENT: crackles, rales, rhonchi, unlabored, wheezes Cardiovascular exam: PRESENT: Regular rate rhythm -+S1, +S2. ABSENT: diastolic murmur, systolic murmur GI/Abdominal exam: PRESENT: normal bowel sounds, soft. ABSENT: guarding, mass, tenderness Extremities exam: Mild trace bilateral lower extremity edema Neurological exam: PRESENT: alert, awake, oriented to person, place and time. Skin exam: PRESENT: dry, warm, Results Laboratory Results: 07/17/16 04:21 07/17/16 04:21 07/17/16 07/17/16 04:21 04:21 WBC 7.2 RBC 2.75 L Hgb 8.1 L Hct 22.7 L MCV 83 MCH 29.4 MCHC 35.6 RDW 16.0 H Plt Count 124 L Seg Neutrophils % 82.8 H Lymphocytes % 11.5 L Monocytes % 4.9 Eosinophils % 0.3 Basophils % 0.5 Absolute Neutrophils 5.9 Absolute Lymphocytes 0.8 Absolute Monocytes 0.4 Absolute Eosinophils 0.0 Absolute Basophils 0.0 Sodium 138.5 Potassium 4.5 Chloride 106 Carbon Dioxide 28 Anion Gap 5 BUN 62 H Creatinine 6.63 H Est GFR ( Amer) 9 L Est GFR (Non-Af Amer) 7 L Glucose 112 H Calcium 7.7 L Impressions: Guidance Fluoroscopy 07/14/16 00:00 IMPRESSION: IMAGE(S) OBTAINED DURING PROCEDURE. Chest X-Ray 07/14/16 12:34 IMPRESSION: No acute findings following dialysis catheter placement. Assessment & Plan - Diagnosis (1) Uremia Is this a current diagnosis for this admission?: YesPlan: Resolved with initiation of hemodialysis. (2) End stage renal disease Is this a current diagnosis for this admission?: YesPlan: We did dialysis today for 3 hours, using the patient's PermCath, with 2 potassium bath, blood flow rate of to 50 mL per minute, dialysate flow rate of 500 mL per minute, ultrafiltration 2 L, no heparin and Procrit with 20,000 units during dialysis intravenously. Patient tolerated dialysis without any problems. Patient is already accepted by [facility] as a patient. She can go there on Wednesday for her next dialysis treatment. Patient may be discharged today from nephrology standpoint. (3) Focal segmental glomerulosclerosis Is this a current diagnosis for this admission?: YesPlan: Status post kidney biopsy. She has nephrotic range proteinuria. Continue current dose of prednisone. (4) Nausea Is this a current diagnosis for this admission?: YesPlan: Resolved. (5) Cholelithiasis Is this a current diagnosis for this admission?: YesPlan: Status post cholecystectomy today by Dr. Sewell. (6) Anemia in chronic kidney disease (CKD) Is this a current diagnosis for this admission?: YesPlan: Continue Procrit during dialysis. (7) Steroid-induced diabetes mellitus Is this a current diagnosis for this admission?: YesPlan: Continue insulin. (8) Hyperphosphatemia Is this a current diagnosis for this admission?: Yes (9) Hypertension Is this a current diagnosis for this admission?: YesPlan: Continue current medications. - Time Time with patient: 15-25 minutes
[2016-07-17] MEDS ORDERED: FOLIC ACID/VITAMIN B COMP W-C CAPSULE PO SCH (16:00)
--- NOTE | 2016-07-17 17:28 | PDOC DISCHARGE SUMMARY ---
General - Admit/Disc Date/PCP Admission Date/Primary Care Provider: 07/13/16 11:04 Jessica BECERRIL MD Discharge Date: 07/17/16 - Discharge Diagnosis (1) ESRD (end stage renal disease) on dialysis Is this a current diagnosis for this admission?: YesSummary: She will continue on 3 times weekly hemodialysis with Dr. Becerril following. (2) Focal segmental glomerulosclerosis Is this a current diagnosis for this admission?: Yes (3) Cholelithiasis Is this a current diagnosis for this admission?: YesSummary: She is status post cholecystectomy on 418 doing well. Follow-up with Gen. surgery for any difficulties. (4) Diabetes mellitus Is this a current diagnosis for this admission?: YesSummary: Continue current insulin therapy. (5) Anemia in chronic kidney disease (CKD) Is this a current diagnosis for this admission?: YesSummary: She has not required transfusions but stable. Will be monitored in dialysis. (6) Hypertension Is this a current diagnosis for this admission?: YesSummary: Presently normotensive on current medications. (7) Nausea Is this a current diagnosis for this admission?: YesSummary: resolved. Secondary to uremia. (8) Hyperphosphatemia Is this a current diagnosis for this admission?: YesSummary: Resolved with dialysis. (9) Weakness generalized Is this a current diagnosis for this admission?: YesSummary: Secondary to uremia and this has improved as well. - Additional Information Resuscitation Status: Full Code Discharge Diet: Diabetic, Other (Comments) - renal Discharge Activity: Activity As Tolerated, Balance Activity w/Rest Home Medications: Calcium Carbonate [Tums Chewable 500 mg Tab.chew] 1,000 mg PO MEALS 07/13/16 Carvedilol [Coreg 12.5 mg Tablet] 12.5 mg PO Q12 07/13/16 Hydralazine HCl [Apresoline 25 mg Tablet] 25 mg PO BID 07/13/16 Hydroxyzine HCl [Atarax 10 mg Tablet] 10 mg PO PRN PRN 07/13/16 Insulin Glargine,Hum.rec.anlog [Lantus Solostar] 10 unit SUBCUT DAILY 07/13/16 Omeprazole 40 mg PO DAILY 07/13/16 Ondansetron HCl [Zofran 4 mg Tablet] 4 mg PO Q6HP PRN 07/13/16 Prednisone [Deltasone 20 mg Tablet] 40 mg PO QAM 07/13/16 Acetaminophen [Tylenol 325 mg Tablet] 650 mg PO Q6HP PRN tablet 07/17/16 Folic Acid/Vitamin B Comp W-C [Nephrocaps Multiple Vitamin Capsule] 1 cap PO ACSUPPER #30 capsule 07/17/16 History of Present Illness Patient complains of: Nausea, abdominal pain and generalized weakness History of Present Illness: SHAKA JARQUIN is a 31 year old female with a history of end-stage renal disease secondary to FSGS for which she has been on long-term steroids. The patient has had worsening of her BUN/creatinine is have complaints of nausea. She was told to come to the emergency room if the nausea became worse because it was most likely related to her uremia. Patient however was in remission yesterday and was found to have gallstones as well as pancreatitis. Sounded does show gallstones but no of his biliary dilatation. Patient does relate that if she eats fatty foods or meat she becomes nauseous and does develop epigastric pain that radiates through to her right shoulder blade. Patient denies any alcohol use. The patient reports that she is to get a peritoneal dialysis catheter placed in anticipation that she will start peritoneal dialysis. Patient denies having any fevers or chills but has had nausea and abdominal pain. She denies any vomiting however. She reports that when she gets the abdominal discomfort it's about 5 out of 10. The patient also has had some complaints of shortness of breath but denies any orthopnea or PND. She's not had any problems acidosis or obvious volume overload yet. Her potassium also has remained normal. Hospital Course Hospital Course: he patient is 31-year-old young female with history of chronic kidney disease stage V secondary to focal segmental glomerulosclerosis diagnosed via kidney biopsy last April 2016 done at [facility] presenting with nausea, weakness and some shortness of breath. Patient follows up with Dr. Kei Becerril who I am covering for this week. Patient got hospitalized at [facility] last April 2016 where she presented with acute renal failure and later on diagnosis with the above. Patient also has nephrotic range proteinuria with more recent urine protein to creatinine ratio of 6.4 gm. She was treated with pulse steroids and continued on oral prednisone. She subsequently followed up with Dr. Becerril here in [place]. Patient said she started to experience more nausea especially in the morning and tried not to vomit. She was feeling weak and feels tired all the time. She is short of breath all the time although not worsening. She claims she does have good appetite though and is able to eat whenever she can. She denies any chest pain. She was also being treated with Lasix and has lost 25 pounds since then. She saw Dr. Becerril in his office last and due to the above symptoms he arrange patient to have peritoneal dialysis placement by Dr. Rey Carnes supposedly today for acute peritoneal dialysis start. Patient went to the emergency room last night due to the above symptoms with the expectation that she will be admitted so to Dr. Carnes can do her peritoneal dialysis today. Dr. Carnes was aware of the plan from last week. She was worked up last night and was found to have cholelithiasis although as well as elevated lipase for possible mild acute pancreatitis. She was however discharged home. This morning she called Dr. Becerril office and related what happened. Dr. Becerril clerical secretary called me and immediately advised the patient to go to the emergency room which she did. Due to the findings of cholelithiasis and mild elevated lipase, Dr. Hodges is consulted Gen. surgery and gastroenterology. Patient underwent laparoscopic cholecystectomy on 07/14/2016. She also underwent a perm catheter placement in right subclavian in that setting by Dr Sewell. She began hemodialysis on the . Dr. Clay, nephrology, followed patient throughout her hospitalization. She was dialyzed once again today. She is feeling much improved. She is having a little abdominal discomfort from surgery. She has been ambulating without difficulty. She wishes to go home. Dialysis has been set up for Wednesday. Physical Exam Vital Signs: Temp Pulse Resp BP Pulse Ox 97.9 F 86 16 147/95 H 99 07/17/16 13:53 07/17/16 13:53 07/17/16 13:53 07/17/16 13:53 07/17/16 13:53 Intake & Output 07/16/16 07/17/16 07/18/16 06:59 06:59 06:59 Intake Total 2030 840 Output Total 2160 9 2200 Balance -130 831 -2200 Weight 122.3 kg 123.2 kg General appearance: PRESENT: no acute distress, morbidly obese, well-developed, well-nourished Head exam: PRESENT: atraumatic, normocephalic Eye exam: PRESENT: conjunctiva pink, EOMI, PERRLA. ABSENT: scleral icterus Ear exam: PRESENT: normal external ear exam Mouth exam: PRESENT: moist, tongue midline Neck exam: ABSENT: carotid bruit, JVD, lymphadenopathy, thyromegaly Respiratory exam: PRESENT: clear to auscultation eneida. ABSENT: rales, rhonchi, wheezes Cardiovascular exam: PRESENT: RRR. ABSENT: diastolic murmur, rubs, systolic murmur Pulses: PRESENT: normal carotid pulses GI/Abdominal exam: PRESENT: normal bowel sounds - Laparoscopic incisions, soft, tenderness Rectal exam: PRESENT: deferred Extremities exam: PRESENT: full ROM. ABSENT: calf tenderness, clubbing, pedal edema Musculoskeletal exam: PRESENT: ambulatory, full ROM, normal inspection Neurological exam: PRESENT: alert, awake, oriented to person, oriented to place , oriented to time, oriented to situation, CN II-XII grossly intact. ABSENT: motor sensory deficit Psychiatric exam: PRESENT: appropriate affect, normal mood. ABSENT: homicidal ideation, suicidal ideation Skin exam: PRESENT: dry, intact, warm. ABSENT: cyanosis, rash Results Laboratory Results: 07/17/16 04:21 07/17/16 04:21 07/17/16 07/17/16 04:21 04:21 WBC 7.2 RBC 2.75 L Hgb 8.1 L Hct 22.7 L MCV 83 MCH 29.4 MCHC 35.6 RDW 16.0 H Plt Count 124 L Seg Neutrophils % 82.8 H Lymphocytes % 11.5 L Monocytes % 4.9 Eosinophils % 0.3 Basophils % 0.5 Absolute Neutrophils 5.9 Absolute Lymphocytes 0.8 Absolute Monocytes 0.4 Absolute Eosinophils 0.0 Absolute Basophils 0.0 Sodium 138.5 Potassium 4.5 Chloride 106 Carbon Dioxide 28 Anion Gap 5 BUN 62 H Creatinine 6.63 H Est GFR ( Amer) 9 L Est GFR (Non-Af Amer) 7 L Glucose 112 H Calcium 7.7 L Impressions: Guidance Fluoroscopy 07/14/16 00:00 IMPRESSION: IMAGE(S) OBTAINED DURING PROCEDURE. Chest X-Ray 07/14/16 12:34 IMPRESSION: No acute findings following dialysis catheter placement. Qualifiers PATEINT BEING DISCHARGED WITH ANY OF THE FOLLOWING DIAGNOSIS?: No Plan Discharge Plan: Discharge home with family Time Spent: Less than 30 Minutes
== END 2016-07-17 14:40 | disposition home or self-care (01) | DRG 659 ==
LOC: ER 08:49 → EH 11:04 → UNDOADMIN 12:40 → 5 14:12
PROC: 02H633Z Insertion of Infusion Device into Right Atrium, Percutaneous Approach (ICD-10-PCS; 2016-07-14)
PROC: B214YZZ Fluoroscopy of Right Heart using Other Contrast (ICD-10-PCS; 2016-07-14)
PROC: 0FT44ZZ Resection of Gallbladder, Percutaneous Endoscopic Approach (ICD-10-PCS; principal; 2016-07-14 08:00)
PROC: 0WQF4ZZ Repair Abdominal Wall, Percutaneous Endoscopic Approach (ICD-10-PCS; 2016-07-14 08:00)
PROC: 5A1D60Z (ICD-10-PCS; 2016-07-15)
DX: I12.0 Hypertensive chronic kidney disease with stage 5 chronic kidney disease or end stage renal disease (principal); N18.6 End stage renal disease; K85.90 Acute pancreatitis without necrosis or infection, unspecified; K80.20 Calculus of gallbladder without cholecystitis without obstruction; K21.9 Gastro-esophageal reflux disease without esophagitis; E09.22 Drug or chemical induced diabetes mellitus with diabetic chronic kidney disease; D63.1 Anemia in chronic kidney disease; E83.39 Other disorders of phosphorus metabolism; K42.9 Umbilical hernia without obstruction or gangrene; Z79.52 Long term (current) use of systemic steroids; Z79.899 Other long term (current) drug therapy; Z87.891 Personal history of nicotine dependence
CPT/HCPCS: 36415; 71010; 77001; 790; 80048; 80053; 80076; 81001; 82962; 83690; 83735; 83970; 84100; 84703; 85025; 85610; 85730; 88304; 99285; C1752; J0131; J0330; J0360; J0690; J1170; J1642; J1720; J1815; J2250; J2405; J2550; J2704; J2765; J3010; J3490; J7512; Q4081; Q9967; S0119

== ENCOUNTER 2016-09-14 11:59 | Day surgery (SDC) | payer MEDICAID ==
[2016-09-08 09:16] LABS: HEMATOCRIT 30.8 % (36.0-47.0); HEMOGLOBIN 10.3 g/dL (12.0-15.5); HGB HCT DIFFERENCE 0.1; MEAN CORPUSCULAR HEMOGLOBIN 29.8 pg (27.0-33.4); MEAN CORPUSCULAR HGB CONC 33.5 g/dL (32.0-36.0); MEAN CORPUSCULAR VOLUME 89 fl (80-97); RED BLOOD COUNT 3.46 10^6/uL (3.72-5.28); RED CELL DISTRIBUTION WIDTH 16.1 % (11.5-14.0); WHITE BLOOD COUNT 5.4 10^3/uL (4.0-10.5)
[2016-09-08 09:32] LABS: ANION GAP 12 (5-19); BLOOD UREA NITROGEN 51 mg/dL (7-20); CALCIUM 8.5 mg/dL (8.4-10.2); CARBON DIOXIDE 23 mmol/L (22-30); CHLORIDE 108 mmol/L (98-107); CREATININE RESULT 10.07 mg/dL (0.52-1.25); GLUCOSE 87 mg/dL (75-110); POTASSIUM 4.3 mmol/L (3.6-5.0); SODIUM 142.8 mmol/L (137-145)
[~2016-09-14 11:59] MED LIST: CEFAZOLIN 1 GM/D5W RTU 1 GM/50 ML RTUPB IV PRN; GLYCOPYRROLATE INJ 0.4 MG/2 ML VIAL ONE; LIDOCAINE 0.5% INJ-PF (5 MG/ML) 50 ML SDV SUBCUT PRN; LIDOCAINE 2% INJ-PF (20 MG/ML) 10 ML AMPUL ONE; NORMAL SALINE 500 ML IV PRN; ONDANSETRON HCL INJ/PF 4 MG/2 ML SDV ONE
[2016-09-14 13:21] LABS: POTASSIUM 5.3 mmol/L (3.6-5.0)
[2016-09-14] MEDS ORDERED: LIDOCAINE 1% INJ-PF (10 MG/ML) 30 ML SDV ONE (14:57)
[2016-09-14] MEDS ORDERED: LIDOCAINE 0.5% INJ-PF (5 MG/ML) 50 ML SDV ONE (14:58)
[2016-09-14] MEDS ORDERED: BACITRACIN INJ 50,000 UNIT VIAL ONE (14:58)
[2016-09-14] MEDS ORDERED: BUPIVACAINE HCL 0.25 % INJ/PF (2.5 MG/1 ML) 30 ML VIAL ONE (14:58)
[2016-09-14] MEDS ORDERED: HEPARIN SOD (PORCINE) 1,000 UNIT/ML 10 ML VIAL ONE (14:58)
[2016-09-14] MEDS ORDERED: PROPOFOL INJ 200 MG/20 ML VIAL IV ONE (15:50)
[2016-09-14] MEDS ORDERED: MIDAZOLAM 2 MG/2 ML INJ ONE (15:50)
[2016-09-14] MEDS ORDERED: MORPHINE SULFATE 10 MG/ML INJ ONE (15:51)
[2016-09-14] MEDS ORDERED: DEXMEDETOMIDINE INJ 80 MCG/20 ML VIAL IV ONE (15:51)
[2016-09-14] MEDS ORDERED: NITROGLYCERIN 0.4 MG/TAB 25 TAB/BOTTLE ONE (15:56)
[2016-09-14] MEDS ORDERED: NITROGLYCERIN/D5W 0 MG/0 ML RTUINJ IV ONE (16:01)
[2016-09-14] MEDS ORDERED: BUPIVACAINE HCL 0.25 % INJ/PF (2.5 MG/1 ML) 30 ML VIAL INJ ONE (16:51)
[2016-09-14] MEDS ORDERED: BACITRACIN INJ 50,000 UNIT VIAL IR ONE (16:54)
[2016-09-14] MEDS ORDERED: OXYCODONE-ACETAMINOPHEN 5-325 MG TABLET PO PRN ×2 (16:55)
[2016-09-14] MEDS ORDERED: MEPERIDINE HCL/PF INJ 25 MG/1 ML DISP.SYRIN IV PRN (16:55)
[2016-09-14] MEDS ORDERED: FENTANYL CITRATE INJ/PF 100 MCG/2 ML AMPUL IV PRN ×3 (16:55)
[2016-09-14] MEDS ORDERED: MORPHINE SULFATE 10 MG/ML INJ IV PRN (16:55)
[2016-09-14] MEDS ORDERED: PROMETHAZINE HCL INJ 25 MG/1 ML VIAL IV PRN ×2 (16:55)
[2016-09-14] MEDS ORDERED: DIPHENHYDRAMINE HCL 50 MG/ML VIAL IV PRN (16:55)
[2016-09-14] MEDS ORDERED: HEPARIN SOD (PORCINE) 1,000 UNIT/ML 10 ML VIAL IV ONE (16:56)
[2016-09-14] MEDS ORDERED: LIDOCAINE 1% INJ-PF (10 MG/ML) 30 ML SDV INJ ONE (17:03)
[2016-09-14] MEDS ORDERED: ACETAMINOPHEN 100 ML IV ONE (17:19)
--- NOTE | 2016-09-14 17:54 | PDOC DISCHARGE SUMMARY ---
Discharge Summary (SDC) - Discharge Final Diagnosis: #1 end-stage renal disease on hemodialysis. 2. Permacatheter in place. 3. Hypertension. Date of Surgery: 09/14/16 Discharge Date: 09/14/16 Treatment or Instructions: Discharge home [after recovery per ASU criteria]. Diet , [renal],as tolerated, when fully awake advance as tolerated. Activities within moderation encouraged. Follow up in my office by appointment in about [1 week]. Call for appointment. Leave wounds [covered], [keep clean and dry, until office visit in 1 week]. Hold of on school/work [until evaluation in office]. May shower [in 48 hrs], [try to keep operated area as dry as possible]. Prescriptions: Oxycodone HCl/Acetaminophen [Percocet 5-325 mg Tablet] 1 tab PO ASDIR PRN #15 tab PRN Reason: Discharge Diet: Other (Comments) - Renal Respiratory Treatments at Home: Deep Breathing/Coughing Discharge Activity: Activity As Tolerated Report the Following to Your Physician Immediately: Unusual Bleeding
--- NOTE | 2016-09-14 18:07 | Operative Report ---
Operative Report DATE OF SURGERY: 09/14/16 PREOPERATIVE DIAGNOSIS: #1 end-stage renal disease on hemodialysis. 2. Permacatheter in place. 3. Hypertension. POSTOPERATIVE DIAGNOSIS: #1 end-stage renal disease on hemodialysis. AV fistula insertion. 2. Permacatheter in place. 3. Hypertension. OPERATION: Insertion of transposed radiocephalic fistula, left. SURGEON: CHUN THOMAS PAPER CARRIER: None ANESTHESIA: LMAC TISSUE REMOVED OR ALTERED: Not applicable. COMPLICATIONS: None ESTIMATED BLOOD LOSS: 5 mL. INTRAOPERATIVE FINDINGS: A nice vein easily accommodating 3.5 mm coronary dilator. The radial artery is really quite small but very supple. Anastomosis somewhat challenging because of the small size of the artery however and nice appropriate Doppler signal in the fistula, continuous, slurred in the inflow artery and multiphasic distally. Somewhat difficult to hear but stethoscope postoperatively. In this young patient I feel this is very appropriate to try, we could expect appropriate dilatation of the radial artery over time. PROCEDURE: Operative Report PROCEDURE: After reviewing the procedure with the patient, she was taken to the operating room. The patient was sedated and the left upper external] prepared with chlorhexidine and draped out with sterile linen. After the "" universal timeout", in which it was verified that the patient [received IV antibiotics] the procedure commenced. The sterilely sheathed ultrasound probe was used to evaluate the size and topographic location of the existing cephalic vein in the forearm. This was transcribed topographical using a marking pen. Local anesthesia was infiltrated and a longitudinal incision started from just above and dissection proceeded down towards the wrist, on the medial surface of the forearm. Sequential infiltration of local anesthesia, incision and dissection of the vein proceeded up to the distal most extent of usable vein. The vein was now dissected away from its branches which were either clipped and/or ligated and divided. In this way the cephalic vein was freed up for an appropriate length. The radial artery was now evaluated by ultrasound and a suitable location for its dissection marked. Local anesthesia was infiltrated in the radial artery was dissected out for a distance of about 2 cm. Rubber loops were placed on either end.. local anesthesia was infiltrated in the skin and subcutaneous tissue of the tunnel. The distal vein was transected and it was irrigated with heparinized solution and easily accepted up to about a 3.5 mm coronary dilator. It was transposed between the 2 incisions. The patient had been given 2500 units of heparin intravenously and the artery controlled proximally and distally with the rubber loops. An arteriotomy was made 1.5 cm in length. The artery was irrigated with heparinized solution. The adjacent vein was now tailored to fit the arteriotomy and an end vein to side artery anastomosis constructed. The fistula was evaluated and found to be working fine. Closure was commenced. The fistula was rechecked from time to time . the wound was now closed using interrupted 3-0 PDS in the subcutaneous tissues. The skin was closed with a continuous subcutaneous suture of 4-0 Monocryl. Steri-Strips were applied over benzoin dressing the procedure was concluded.
[2016-09-14] MEDS ORDERED: FENTANYL CITRATE INJ/PF 100 MCG/2 ML AMPUL ONE (18:27)
[2016-09-14 21:04] VITALS: BP 127/80
== END 2016-09-14 21:25 | disposition home or self-care (01) ==
LOC: OROUT 11:59 → 5 19:37 → OROUT 21:25
PROVIDERS: ATTEND Surgery
PROC: 05SF0ZZ Reposition Left Cephalic Vein, Open Approach (ICD-10-PCS; principal; 2016-09-14 14:30)
DX: I12.0 Hypertensive chronic kidney disease with stage 5 chronic kidney disease or end stage renal disease (principal); N18.6 End stage renal disease; Z99.2 Dependence on renal dialysis; Z79.899 Other long term (current) drug therapy; Z87.891 Personal history of nicotine dependence
CPT/HCPCS: 36818; 36415 ×2; 82947; 84132; 84703; 85027; 80048; J2250; J3490 ×6; J0690; J3010; J1644; J2270; J2405; S0020; J2704; J0131; 1844

== ENCOUNTER 2016-09-26 21:10 | Emergency (ER) | payer MEDICARE, MEDICAID ==
--- NOTE | 2016-09-27 01:06 | ER Document Report ---
ED General - General Chief Complaint: Mouth Problem Stated Complaint: POSSIBLE ABSCESS ON GUMS Time Seen by Provider: 09/27/16 00:29 TRAVEL OUTSIDE OF THE [place] IN LAST 30 DAYS: No - HPI Patient complains to provider of: Mouth pain 1 week Notes: Patient coming in for mouth pain ongoing for 1 week. Patient states her small little bumps on the gums of the left upper and left lower side of her mouth because she had abscesses and has been trying to pop little bumps without success. Patient denies any other complaints denies fevers chills nausea vomiting difficulty eating difficulty swallowing. Patient states she normally does but her teeth regularly patient also is complaining of pain in her teeth along the areas. 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 Denies: Hx Peritoneal Dialysis - hemodialysi GI Medical History: Reports: Hx Gastroesophageal Reflux Disease Musculoskeltal Medical History: Denies Hx Arthritis Past Surgical History: Reports: Hx Section - Immunizations Hx Diphtheria, Pertussis, Tetanus Vaccination: Yes Review of Systems - Review of Systems Constitutional: No symptoms reported EENT: Other - Mouth pain Cardiovascular: No symptoms reported Respiratory: No symptoms reported Gastrointestinal: No symptoms reported Genitourinary: No symptoms reported Female Genitourinary: No symptoms reported Musculoskeletal: No symptoms reported Skin: No symptoms reported Hematologic/Lymphatic: No symptoms reported Neurological/Psychological: No symptoms reported Physical Exam - Vital signs Vitals: Temp Pulse Resp BP Pulse Ox 98.7 F 73 16 141/78 H 100 09/26/16 21:22 09/26/16 21:22 09/26/16 21:22 09/26/16 21:22 09/26/16 21:22 Interpretation: Normal - General General appearance: Appears well, Alert - HEENT Head: Normocephalic, Atraumatic Eyes: Normal Pupils: PERRL Mouth/Lips: Other - Patient has multiple small areas gingivitis and gingival erythema possibly gingival cellulitis there is no overt abscess seen on both the upper and lower gums. - Respiratory Respiratory status: No respiratory distress Chest status: Nontender Breath sounds: Normal Chest palpation: Normal - Cardiovascular Rhythm: Regular Heart sounds: Normal auscultation Murmur: No - Abdominal Inspection: Normal Distension: No distension Bowel sounds: Normal Tenderness: Nontender Organomegaly: No organomegaly - Back Back: Normal, Nontender - Extremities General upper extremity: Normal inspection, Nontender, Normal color, Normal ROM , Normal temperature General lower extremity: Normal inspection, Nontender, Normal color, Normal ROM , Normal temperature, Normal weight bearing. No: Misbah's sign - Neurological Neuro grossly intact: Yes Cognition: Normal Orientation: AAOx4 [place] Coma Scale Eye Opening: Spontaneous [place] Coma Scale Verbal: Oriented Monalisa Coma Scale Motor: Obeys Commands Dillwyn Coma Scale Total: 15 Speech: Normal Motor strength normal: LUE, RUE, LLE, RLE Sensory: Normal - Psychological Associated symptoms: Normal affect, Normal mood - Skin Skin Temperature: Warm Skin Moisture: Dry Skin Color: Normal Course - Re-evaluation Re-evalutation: 09/27/16 01:24 Patient was to have gingivitis or gingival cellulitis. Will start patient on clindamycin for possible bacterial infection encouraged patient to continue brush and floss and use Listerine patient is follow-up with [facility] patient will be discharged home - Vital Signs Vital signs: Temp Pulse Resp BP Pulse Ox 98.7 F 73 16 141/78 H 100 09/26/16 21:22 09/26/16 21:22 09/26/16 21:22 09/26/16 21:22 09/26/16 21:22 Discharge - Discharge Clinical Impression: Cellulitis of gingiva Condition: Good Disposition: HOME, SELF-CARE Instructions: Dentist Additional Instructions: Examination of your exam today did not reveal any signs of abscess formation but does show signs of infection of the gum gingival cellulitis or gingivitis. We will place you on clindamycin for the next 7 days. Also recommend that she routinely brush wash and also use Listerine or another anti-septic mouthwash for your condition. Recommend following up with local dentist or your dentist for further evaluation and Tylenol for your pain control Prescriptions: Clindamycin HCl 150 mg PO QID 7 Days
[2016-09-27 02:56] VITALS: BP 137/79
== END 2016-09-27 01:17 | disposition home or self-care (01) ==
LOC: ER 21:10
DX: K05.10 Chronic gingivitis, plaque induced (principal); K13.79 Other lesions of oral mucosa; I12.0 Hypertensive chronic kidney disease with stage 5 chronic kidney disease or end stage renal disease; N18.6 End stage renal disease
CPT/HCPCS: 99282

== ENCOUNTER 2016-10-12 11:42 | Day surgery (SDC) | payer MEDICARE, MEDICAID ==
[~2016-10-12 11:42] MED LIST changes: -LIDOCAINE 0.5% INJ-PF (5 MG/ML) 50 ML SDV SUBCUT PRN; +METOCLOPRAMIDE HCL INJ/PF 10 MG/2 ML SDV ONE; +NEOSTIGMINE METHYLSULFATE 10 MG/10 ML VIAL ONE; -NORMAL SALINE 500 ML IV PRN; +ROCURONIUM BROMIDE INJ 50 MG/5 ML VIAL IV ONE; +SUCCINYLCHOLINE CHLORIDE INJ 200 MG/10 ML VIAL ONE
[2016-10-12 12:16] LABS: HEMATOCRIT 35.2 % (36.0-47.0); HEMOGLOBIN 11.5 g/dL (12.0-15.5); HGB HCT DIFFERENCE -0.7; MEAN CORPUSCULAR HEMOGLOBIN 28.9 pg (27.0-33.4); MEAN CORPUSCULAR HGB CONC 32.6 g/dL (32.0-36.0); MEAN CORPUSCULAR VOLUME 89 fl (80-97); RED BLOOD COUNT 3.97 10^6/uL (3.72-5.28); RED CELL DISTRIBUTION WIDTH 15.1 % (11.5-14.0); WHITE BLOOD COUNT 5.4 10^3/uL (4.0-10.5)
[2016-10-12 12:38] LABS: ANION GAP 12 (5-19); BLOOD UREA NITROGEN 46 mg/dL (7-20); CALCIUM 9.8 mg/dL (8.4-10.2); CARBON DIOXIDE 24 mmol/L (22-30); CHLORIDE 106 mmol/L (98-107); CREATININE RESULT 9.07 mg/dL (0.52-1.25); GLUCOSE 101 mg/dL (75-110); POTASSIUM 5.3 mmol/L (3.6-5.0); SODIUM 141.6 mmol/L (137-145)
[2016-10-12] MEDS ORDERED: BUPIVACAINE HCL 0.25 % INJ/PF (2.5 MG/1 ML) 30 ML VIAL ONE (12:42)
[2016-10-12] MEDS ORDERED: HEPARIN SOD (PORCINE) 1,000 UNIT/ML 10 ML VIAL ONE (12:42)
[2016-10-12] MEDS ORDERED: LIDOCAINE 0.5% INJ-PF (5 MG/ML) 50 ML SDV ONE (12:43)
[2016-10-12] MEDS ORDERED: BACITRACIN INJ 50,000 UNIT VIAL ONE (12:43)
--- NOTE | 2016-10-12 15:28 | PDOC H&P ---
General Chief Complaint: The patient is undergoing hemodialysis through a permacatheter. She has an AV fistula. She has been cleared for peritoneal dialysis and wishes to go that route. She is therefore presented for insertion of a peritoneal dialysis catheter. - Diagnosis (1) ESRD (end stage renal disease) on dialysis Is this a Current Diagnosis?: Yes (2) Hypertension Is this a Current Diagnosis?: Yes (3) Steroid-induced diabetes mellitus Is this a Current Diagnosis?: Yes - Current Medications/Allergies Home Medications: Carvedilol [Coreg 12.5 mg Tablet] 12.5 mg PO Q12 07/13/16 Hydralazine HCl [Apresoline 25 mg Tablet] 25 mg PO BID 07/13/16 Alprazolam [Xanax] 1 mg PO PRN PRN 09/04/16 Folic Acid/Vitamin B Comp W-C [Nephrocaps Multiple Vitamin Capsule] 1 cap PO DAILY 09/04/16 Furosemide [Lasix] 40 mg PO BID 09/04/16 Allergies/Adverse Reactions: No Known Allergies Allergy (Verified 09/04/16 13:59) Past Medical History Cardiac Medical History: Reports: Hypertension Denies: Coronary Artery Disease, Myocardial Infarction Pulmonary Medical History: Denies: Asthma, Bronchitis, Chronic Obstructive Pulmonary Disease (COPD), Pneumonia Neurological Medical History: Denies: Seizures Endocrine Medical History: Reports: 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 Renal/ Medical History: Reports: End Stage Renal Disease GI Medical History: Reports: Gastroesophageal Reflux Disease Musculoskeltal Medical History: Denies: Arthritis Hematology: Reports: Anemia Past Surgical History Past Surgical History: Reports: Section Family History Family History: Reviewed & Not Pertinent Parental Family History Reviewed: No Children Family History Reviewed: No Sibling(s) Family History Reviewed.: No Social History Smoking Status: Former Smoker Frequency of Alcohol Use: None Hx Recreational Drug Use: No Drugs: None Hx Prescription Drug Abuse: No Physical Exam Vital Signs: Temp Pulse Resp BP Pulse Ox 98.1 F 78 16 142/88 H 99 10/12/16 12:35 10/12/16 12:35 10/12/16 12:35 10/12/16 12:35 10/12/16 12:35 Intake & Output 10/11/16 10/12/16 10/13/16 06:59 06:59 06:59 Intake Total 0 Balance 0 Weight 113 kg Additional comments: Constitutional: Well-developed well-nourished lady, moderately increased body mass index. No apparent acute distress. Eyes: Mucous membranes pink and moist, pupils equal and reactive to light. Conjunctiva normal. Cornea normal. ENT: Hearing grossly normal. External pinna normal to inspection. Teeth intact. Tongue normal to inspection. Cardiac heart sounds normal. Respiratory breath sounds are present bilaterally, normal. Normal respiratory effort. Skin: Normal to inspection. No ulcers, normal turgor. Abdomen: Soft, nontender. Liver and spleen are not palpably enlarged. Bowel sounds are normal. No hernia noted. Surgical scars of cholecystectomy present. Psychiatric: Judgment, memory, insight seem normal. Mood is pleasant and appropriate. Extremities: Upper extremities show normal range of movement. Pulses present noted to the radial arteries. Capillary refill normal. No cyanosis noted. No muscle wasting noted. Impression/Plan Impression: #[address] 2. End-stage renal disease on hemodialysis. 3. Hypertension.. Plan: This patient who has had a AV fistula placed is now a candidate for peritoneal dialysis. She is therefore consented for insertion of aperitoneal dialysis catheter which we will try to do laparoscopically. Risks benefits, expected outcome and alternatives were discussed with her. She is agreeable.
[2016-10-12] MEDS ORDERED: MIDAZOLAM 2 MG/2 ML INJ ONE ×2 (15:37)
[2016-10-12] MEDS ORDERED: DEXMEDETOMIDINE INJ 80 MCG/20 ML VIAL IV ONE (15:38)
[2016-10-12] MEDS ORDERED: MORPHINE SULFATE 10 MG/ML INJ ONE (15:38)
[2016-10-12] MEDS ORDERED: PROPOFOL INJ 200 MG/20 ML VIAL IV ONE (15:38)
[2016-10-12] MEDS ORDERED: BUPIVACAINE HCL 0.25 % INJ/PF (2.5 MG/1 ML) 30 ML VIAL INJ ONE (16:38)
[2016-10-12] MEDS ORDERED: HEPARIN SOD (PORCINE) 1,000 UNIT/ML 1 ML VIAL MC ONE (16:40)
[2016-10-12] MEDS ORDERED: BACITRACIN INJ 50,000 UNIT VIAL IR ONE (16:44)
[2016-10-12] MEDS ORDERED: FENTANYL CITRATE INJ/PF 100 MCG/2 ML AMPUL IV PRN ×3 (17:00)
[2016-10-12] MEDS ORDERED: PROMETHAZINE HCL INJ 25 MG/1 ML VIAL IV PRN ×2 (17:00)
[2016-10-12] MEDS ORDERED: MORPHINE SULFATE 10 MG/ML INJ IV PRN (17:00)
[2016-10-12] MEDS ORDERED: OXYCODONE-ACETAMINOPHEN 5-325 MG TABLET PO PRN ×2 (17:00)
[2016-10-12] MEDS ORDERED: MEPERIDINE HCL/PF INJ 25 MG/1 ML DISP.SYRIN IV PRN (17:00)
[2016-10-12] MEDS ORDERED: DIPHENHYDRAMINE HCL 50 MG/ML VIAL IV PRN (17:00)
--- NOTE | 2016-10-12 17:49 | PDOC DISCHARGE SUMMARY ---
Discharge Summary (SDC) - Discharge Final Diagnosis: 1. Perm cath in place. 2. ESRD on hemodialysis. 3. Hypertension. Date of Surgery: 10/12/16 Discharge Date: 10/12/16 Condition: Good Treatment or Instructions: Discharge home [after recovery per ASU criteria]. Diet , [renal],as tolerated, when fully awake advance as tolerated. Activities within moderation encouraged. Follow up in my office by appointment in about [1 week]. Call for appointment. Leave wounds [covered], [keep clean and dry, until office visit in 1 week]. Medications per medication reconciliation sheet. Percocet prescription. Hold of on school/work [until evaluation in office]. May shower [in 48 hrs], [try to keep operated area as dry as possible]. Prescriptions: Oxycodone HCl/Acetaminophen [Percocet 5-325 mg Tablet] 1 tab PO ASDIR PRN #15 tab PRN Reason: Discharge Diet: Other (Comments) - Renal
--- NOTE | 2016-10-12 17:52 | Operative Report ---
Operative Report DATE OF SURGERY: 10/12/16 PREOPERATIVE DIAGNOSIS: 1. Perm cath in place. 2. ESRD on hemodialysis. 3. Hypertension. POSTOPERATIVE DIAGNOSIS: 1. Perm cath in place. 2. ESRD on hemodialysis. 3. Hypertension. OPERATION: 1. Laparoscopic insertion of peritoneal dialysis catheter. SURGEON: CHUN THOMAS MOLD CAPPER: None ANESTHESIA: GA TISSUE REMOVED OR ALTERED: Not applicable. COMPLICATIONS: None ESTIMATED BLOOD LOSS: 10 mL. INTRAOPERATIVE FINDINGS: Satisfactory review, satisfactory positioning of the catheter with its coiled tip well down in the pelvis. Easily ingress of 1 L of heparinized solution and easily withdrawal of 800 mils of fluid. Overall well- tolerated. Hard copy documented pictures. After quite a large omentum however the omentum was well above the pelvis this is shown in the pictures. Sigmoid does have a fair amount of fat in the mesocolon no benefit to transfixing the omentum seem to exist. PROCEDURE: After obtaining informed consent and going over the procedure with [the patient and her family], she was taken to the operating room, [she was] anesthetized and intubated. The abdomen was prepped and draped in the usual sterile fashion. After the universal timeout, in which it was verified that the patient received IV antibiotic, the procedure commenced. The topographical location for the peritoneal dialysis catheter was sketched by applying it to the anterior abdominal wall. The reference point was the pubic symphysis the coil of the catheter, just beneath this level. In this way the position for the cuffs and the external catheter exit were ascertained and marked. The catheter was now replaced in antibiotic containing solution. An entry into the abdomen was sketched just to the right of the midline and transversely in the epigastrium. Local anesthesia was infiltrated. A 1 cm, transverse incision was made with a [15 blade scalpel]. Dissection now proceeded to the medial aspect of the right rectus sheath. This was opened and the muscle gently reflected. The posterior rectus sheath and peritoneum were opened between hemostats and entry was gained to the peritoneal cavity. This allowed introduction of a 5 mm laparoscopic port. The abdomen was now insufflated with carbon dioxide up to a maximum pressure of 12 mm of mercury. The camera was inserted and a good view gained of the abdomen. Photographs were taken. Local anesthesia was now infiltrated and an incision made in respect to the curve of the catheter. A 1 cm transverse incision was made at this point and dissection proceeded down to the rectus sheath. This was opened and a Veress needle on a reducing sleeve were were now introduced through the rectus muscle and the manipulated down to about 4 cm inferior to the incision. The peritoneum was now entered and the Veress needle removed. The internal cannula was now placed under direct vision. A swan neck peritoneal dialysis catheter was now placed on a stylette. Great care was taken to keep the orientation in reference to the white line on the catheter. It was now inserted into the peritoneal cavity under direct vision, through the introducer. As the catheter entered the abdomen the stylette was slowly withdrawn allowing it to assume its normal orientation and shape within the peritoneal cavity. Both the stylet and introducer were removed so as to place the internal cuff about 3 cm from the entry point of the peritoneal cavity, and within the rectus sheath. This was verified with respect to the incision. The external curve of the catheter was allowed to form precisely at the level of the incision. Externally the catheter was affixed to a Madina stylette which was now used to tunnel the catheter in the subcutaneous tissues to its exit site where it was now used to exit the skin. The catheter orientation and position and, particularly the 2 cuffs of the catheter were verified. Once this was done the external portion of the catheter was affixed to a Leur lock adapter and connected to a sterile IV tubing. This allowed introduction of 1 L of heparinized saline into the peritoneal cavity via the catheter. This occurred with brisk and free flow of fluid into the peritoneal cavity. Once the entire liter had been infused, the bag was now placed beneath the level of the patient and very satisfactory outflow was observed. With this in place, the camera and the catheter were removed and abdomen desufflated. The subcutaneous tissue in each incision was closed with interrupted 3-0 PDS. The skin in each incision was closed using interrupted and continuous sutures of 4-0 Monocryl. Once about 800 mils of the Infusaid had been passively removed from the abdomen, the catheter was flushed with 10 mL of heparinized solution and capped. The bio a patch was applied at the exit site. Benzoin was applied and Steri-Strips used to reinforce each of the wounds. It was also used to help anchor the Biopatch. It was also used to anchor the main catheter so that any external pressure would not dislodge the catheter. Dry gauze and tape applied and the procedure concluded.
[2016-10-12] MEDS ORDERED: ONDANSETRON 4 MG TAB.RAPDIS ONE (19:26)
[2016-10-12 19:37] VITALS: BP 143/76
== END 2016-10-12 19:30 | disposition home or self-care (01) ==
LOC: OROUT 11:42
PROVIDERS: ATTEND Surgery
PROC: 0WHG43Z Insertion of Infusion Device into Peritoneal Cavity, Percutaneous Endoscopic Approach (ICD-10-PCS; principal; 2016-10-12 13:30)
DX: I12.0 Hypertensive chronic kidney disease with stage 5 chronic kidney disease or end stage renal disease (principal); N18.6 End stage renal disease; Z99.2 Dependence on renal dialysis; E09.9 Drug or chemical induced diabetes mellitus without complications; D63.1 Anemia in chronic kidney disease; Z79.4 Long term (current) use of insulin; Z79.899 Other long term (current) drug therapy; Z87.891 Personal history of nicotine dependence
CPT/HCPCS: 36415; 84703; 85027; 80048; 49324; J2250; J3490 ×5; J0690; A9270; J1644; J2765; J2270; J0330; J2405; J2704; J1642; 1844; S0119

== ENCOUNTER 2017-08-09 15:50 | Emergency (ER) | payer MEDICARE, MEDICAID ==
[2017-08-09 16:00] VITALS: BP 111/71
--- NOTE | 2017-08-09 16:50 | ER Document Report ---
ED Medical Screen (RME) - General Chief Complaint: Breathing Difficulty Stated Complaint: SHORTNESS OF BREATH Time Seen by Provider: 08/09/17 16:42 Notes: RAPID MEDICAL EVALUATION DISCLOSURE I have seen this patient as part of a Rapid Medical Evaluation and, if applicable, placed any initially appropriate orders. The patient will be seen and fully evaluated, including a full history and physical exam, by a provider ( in Main ED or Fast Track) when a room becomes available. 32-year-old female PMH peritoneal dialysis here with complaints of feeling drained over the past 1 day. She has been having nausea shortness of breath and lightheadedness. She performs approximately 9 hours every night and 1 hour in the daytime. She has not had any change from her usual. EXAM CTAB RRR TRAVEL OUTSIDE OF THE [place] 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 Renal/ Medical History: Reports: Hx End Stage Renal Disease, Hx Peritoneal Dialysis - last night was last time GI Medical History: Reports: Hx Gastroesophageal Reflux Disease Musculoskeltal Medical History: Denies Hx Arthritis Past Surgical History: Reports: Hx Section - Immunizations Hx Diphtheria, Pertussis, Tetanus Vaccination: Yes Physical Exam - Vital signs Vitals: Temp Pulse Resp BP Pulse Ox 98.5 F 91 20 111/71 99 08/09/17 15:59 08/09/17 15:59 08/09/17 15:59 08/09/17 15:59 08/09/17 15:59 Course - Vital Signs Vital signs: Temp Pulse Resp BP Pulse Ox 98.5 F 91 20 111/71 99 08/09/17 15:59 08/09/17 15:59 08/09/17 15:59 08/09/17 15:59 08/09/17 15:59
== END 2017-08-09 17:10 | disposition left against medical advice (07) ==
LOC: ER 15:50
DX: R06.00 Dyspnea, unspecified (principal); R06.02 Shortness of breath; R11.0 Nausea; R42 Dizziness and giddiness; E09.22 Drug or chemical induced diabetes mellitus with diabetic chronic kidney disease; I12.0 Hypertensive chronic kidney disease with stage 5 chronic kidney disease or end stage renal disease; N18.6 End stage renal disease; Z99.2 Dependence on renal dialysis
CPT/HCPCS: 36415; 99281

== ENCOUNTER 2017-08-19 16:36 | Emergency (ER) | payer MEDICARE, MEDICAID ==
--- NOTE | 2017-08-19 17:53 | ER Document Report ---
ED Medical Screen (RME) - General Chief Complaint: Abdominal Pain Stated Complaint: DIZZY, DIARRHEA, HEARTBEAT ISSUE Time Seen by Provider: 08/19/17 17:31 Notes: RAPID MEDICAL EVALUATION DISCLOSURE I have seen this patient as part of a Rapid Medical Evaluation and, if applicable, placed any initially appropriate orders. The patient will be seen and fully evaluated, including a full history and physical exam, by a provider ( in Main ED or Fast Track) when a room becomes available. 32-year-old female PMH peritoneal dialysis here with complaints of abdominal pain nausea vomiting diarrhea and was sent here for possible peritonitis by her dialysis care team. She has taken promethazine with good relief of her nausea/ vomiting. She has minimal pain at this time. She reports that she currently has some fluid in her that she has not yet taken out. She has no prior history of peritonitis EXAM Mild epigastric TTP Minimal TTP elsewhere Peritoneal dialysis tubing visualized TRAVEL OUTSIDE OF THE [place] 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 Renal/ Medical History: Reports: Hx End Stage Renal Disease, Hx Peritoneal Dialysis GI Medical History: Reports: Hx Gastroesophageal Reflux Disease Musculoskeltal Medical History: Denies Hx Arthritis Past Surgical History: Reports: Hx Section, Hx Cholecystectomy - Immunizations Hx Diphtheria, Pertussis, Tetanus Vaccination: Yes Physical Exam - Vital signs Vitals: Temp Pulse Resp BP Pulse Ox 98.4 F 69 18 125/66 100 08/19/17 16:53 08/19/17 16:53 08/19/17 16:53 08/19/17 16:53 08/19/17 16:53 Course - Vital Signs Vital signs: Temp Pulse Resp BP Pulse Ox 98.4 F 69 18 125/66 100 08/19/17 16:53 08/19/17 16:53 08/19/17 16:53 08/19/17 16:53 08/19/17 16:53
[2017-08-19 18:06] LABS: ABSOLUTE BASOPHILS # (AUTO) 0.1 10^3/uL (0.0-0.2); ABSOLUTE EOSINOPHILS # (AUTO) 0.2 10^3/uL (0.0-0.6); ABSOLUTE LYMPHOCYTES (AUTO) 0.9 10^3/uL (0.5-4.7); ABSOLUTE MONOCYTES (AUTO) 0.2 10^3/uL (0.1-1.4); ABSOLUTE NEUT (AUTO) 9.8 10^3/uL (1.7-8.2); BASOPHILS % (AUTO) 0.9 % (0-2); EOSINOPHILS % (AUTO) 1.8 % (0-6); LYMPHOCYTES % (AUTO) 8.2 % (13-45); MEAN CORPUSCULAR HGB CONC 35.5 g/dL (32.0-36.0); MEAN CORPUSCULAR VOLUME 84 fl (80-97); PLATELET COUNT 261 10^3/uL (150-450); RED BLOOD COUNT 3.32 10^6/uL (3.72-5.28); RED CELL DISTRIBUTION WIDTH 12.9 % (11.5-14.0); SEGMENTED NEUTROPHILS % (AUTO) 87.1 % (42-78); TOTAL CELLS COUNTED % (AUTO) 100 %; WHITE BLOOD COUNT 11.2 10^3/uL (4.0-10.5)
[2017-08-19] MEDS ORDERED: PROCHLORPERAZINE EDISYLATE INJ 10 MG/2 ML VIAL IM ONE (18:19)
[2017-08-19 18:26] LABS: ALANINE AMINOTRANSFERASE 25 U/L (9-52); ALKALINE PHOSPHATASE 45 U/L (38-126); ANION GAP 15 (5-19); ASPARTATE AMINO TRANSFERASE 16 U/L (14-36); BILIRUBIN,DIRECT 0.4 mg/dL (0.0-0.4); BILIRUBIN,TOTAL 0.5 mg/dL (0.2-1.3); BLOOD UREA NITROGEN 70 mg/dL (7-20); CALCIUM 9.3 mg/dL (8.4-10.2); CARBON DIOXIDE 28 mmol/L (22-30); CHLORIDE 97 mmol/L (98-107); GLUCOSE 109 mg/dL (75-110); LIPASE 432.1 U/L (23-300); POTASSIUM 4.2 mmol/L (3.6-5.0); SODIUM 139.8 mmol/L (137-145); TOTAL PROTEIN 6.8 g/dL (6.3-8.2)
--- NOTE | 2017-08-19 18:31 | ER Document Report ---
ED General - General Chief Complaint: Abdominal Pain Stated Complaint: DIZZY, DIARRHEA, HEARTBEAT ISSUE Time Seen by Provider: 08/19/17 17:31 TRAVEL OUTSIDE OF THE [place] 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 Patient states earlier this afternoon she had sudden onset initially , no coffee-ground hematemesis. Developed some watery diarrhea without blood and subsequent mid abdominal cramping pain. She has had no problems with her exchanges, her peritoneal dialysate is remain clear with no color change. Pain is now abated and is essentially gone but she wanted to get checked out. She apparently told her dialysis nurse about this and they told her to go to the ER to get her PD fluid checked. She denies any fevers. No recent travel, no recent antibiotic use. No other modifying factors, no other associated symptoms , no other provocative or palliative factors. Nonradiating pain. - Related Data Allergies/Adverse Reactions: No Known Allergies Allergy (Verified 08/19/17 17:22) Past Medical History - Social History Smoking Status: Former Smoker Chew tobacco use (# tins/day): No Frequency of alcohol use: None Drug Abuse: None Family History: Reviewed & Not Pertinent Patient has suicidal ideation: No Patient has homicidal ideation: No - Past Medical History Cardiac Medical History: Reports: Hx Hypertension Denies: Hx Coronary Artery Disease, Hx Heart Attack Pulmonary Medical History: Denies: Hx Asthma, Hx Bronchitis, Hx COPD, Hx Pneumonia Neurological Medical History: Denies: Hx Cerebrovascular Accident, Hx Seizures Endocrine Medical History: 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 Physical Exam - Vital signs Vitals: Temp Pulse Resp BP Pulse Ox 98.4 F 69 18 125/66 100 08/19/17 16:53 08/19/17 16:53 08/19/17 16:53 08/19/17 16:53 08/19/17 16:53 - Notes Notes: General: Well developed . HEENT: Normocephalic, atraumatic. Pupils equal round reactive to light. No JVD. Chest: No trauma. Respiratory: Good air exchange, normal excursion. Cardiac: Regular rhythm. No murmurs or gallops. Abdomen: Soft, benign. Nondistended, nontender on deep palpation all quadrants. No peritoneal signs. PD catheter is clean dry and intact. Back: No asymmetry or gross abnormality. Motor: Grossly normal power and tone. Neurologic: Alert, nonfocal. Cranial nerves II-12 are intact. Sensation intact. Vascular: Well perfused. Normal peripheral pulses. Skin: No petechiae or purpura. Course - Re-evaluation Re-evalutation: 08/19/17 18:31 This is a well-appearing female who presents the after mentioned symptoms, strongly suspicious for gastroenteritis food poisoning. She has a benign examination. My suspicion for peritonitis is essentially 0 as she has no tenderness or exam findings that would suggest peritonitis. Plan at this time is to proceed with laboratory evaluation which was obtained prior to my seeing the patient, serial examination, treat symptoms with Compazine, reassess. 08/19/17 18:50 Labs reviewed, CBC unremarkable, chemistries and LFTs are unremarkable. Lipase is minimally elevated but does not meet criteria for pancreatitis and is likely secondary to vomiting. Patient has had serial examinations which show absolutely no abdominal tenderness. She safe discharge home, I strongly suspect viral gastroenteritis. She is given a prescription for Zofran, Bentyl, outpatient follow-up with the primary care physician in the morning. - Vital Signs Vital signs: Temp Pulse Resp BP Pulse Ox 98.4 F 69 18 125/66 100 08/19/17 16:53 08/19/17 16:53 08/19/17 16:53 08/19/17 16:53 08/19/17 16:53 - Laboratory Result Diagrams: 08/19/17 17:45 08/19/17 17:45 Laboratory results interpreted by me: 08/19/17 08/19/17 17:45 17:45 WBC 11.2 H RBC 3.32 L Hgb 10.0 L Hct 28.0 L Seg Neutrophils % 87.1 H Lymphocytes % 8.2 L Monocytes % 2.0 L Absolute Neutrophils 9.8 H Chloride 97 L BUN 70 H Creatinine 11.97 H Est GFR ( Amer) 4 L Est GFR (Non-Af Amer) 4 L Lipase 432.1 H Discharge - Discharge Clinical Impression: Gastroenteritis Condition: Good Disposition: HOME, SELF-CARE Instructions: Abdominal Pain ([facility]), Gastroenteritis (adult) ([facility]) Prescriptions: Dicyclomine HCl [Bentyl 10 mg Capsule] 1 cap PO TID #30 cap Ondansetron [Zofran Odt 4 mg Tablet] 1 - 2 tab PO Q4H PRN #15 tab.rapdis PRN Reason: For Nausea/Vomiting
[2017-08-19 19:54] VITALS: BP 102/62
== END 2017-08-19 20:01 | disposition home or self-care (01) ==
LOC: ER 16:36
DX: K52.9 Noninfective gastroenteritis and colitis, unspecified (principal); R10.9 Unspecified abdominal pain; R11.2 Nausea with vomiting, unspecified; I12.0 Hypertensive chronic kidney disease with stage 5 chronic kidney disease or end stage renal disease; N18.6 End stage renal disease; Z99.2 Dependence on renal dialysis; Z87.891 Personal history of nicotine dependence
CPT/HCPCS: 99284; 96372; 36415; 87040; 83690; 85025; 80053; 83605; J0780